=== PATIENT | female | born 1955 | race Caucasian/White ===

== ENCOUNTER 2017-02-14 06:48 | Observation (INO) | payer OTHER ==
--- NOTE | 2017-02-03 16:54 | HP ---
CC: Sharon Cornell NP; Dr. Gissell Lofton; Dr. Adrian Sin * ADMISSION HISTORY AND PHYSICAL: DATE OF ADMISSION: 02/14/17 ATTENDING SURGEON: Dr. Paola Granado. * (DICTATED BY LEOBARDO MARTÍNEZ) CHIEF COMPLAINT: Left breast cancer. HISTORY OF PRESENT ILLNESS: This is a 61-year-old female with multiple medical problems, who underwent routine screening mammography on 01/14/17. She had not noted any specific changes in either breast and does not do a breast self-exam on any regular basis. The mammogram was compared with a previous from September 2015 and a new density was noted in the upper outer quadrant of the left breast measuring approximately 6 mm. An ultrasound that same date confirmed a hypoechoic mass measuring 5 x 5 x 4 mm at the 2 to 3 o'clock position of the left breast located 7 cm from the nipple. A second solid nodule was noted at the 5 to 6 o'clock position measuring 7 x 4 x 6 mm with circumscribed margins. Patient underwent ultrasound- guided biopsy of both of the lesions on . The lesion at the 2 to 3 o'clock position was positive for invasive ductal carcinoma with DCIS features. It was ER positive, TX and HER2 negative. The other lesion was confirmed to be a fibroadenoma. The patient was seen in the office by Dr. Granado on 01/30/17, at which time exam revealed a small scar on the right breast (patient is status post right breast biopsy for benign disease many years ago). There were no specific masses in either breast. There was bilateral shotty axillary adenopathy by palpation. There was no supraclavicular or cervical lymphadenopathy. Patient's family history is positive for breast cancer in her sister who was diagnosed in her 40s and who is alive and well. Dr. Granado discussed with her the options for the surgical portion of treatment of her breast cancer. She has reviewed with her the indications, risks, benefits and alternatives. The patient understands the expected perioperative course. She has declined referral for reconstruction and she would like to proceed as scheduled with bilateral mastectomy with left sentinel lymph node biopsy. She also has a referral set up with Dr. Gissell Lofton. PAST MEDICAL HISTORY: 1. COPD/asthma. 2. Hypertension. 3. Hyperlipidemia. 4. Borderline diabetes mellitus. 5. Anxiety and panic disorder. 6. GERD. 7. Osteoarthritis. 8. Overactive bladder. 9. Active smoker. PAST SURGICAL HISTORY: Tubal ligation, and MARCIA with BSO for benign disease. CURRENT MEDICATIONS: 1. Paroxetine 40 mg 1-1/2 tablets once daily. 2. Metformin 500 mg daily. 3. Hydrochlorothiazide 25 mg daily. 4. Omeprazole 40 mg daily. 5. Oxybutynin ER 10 mg daily. 6. Gemfibrozil 600 mg b.i.d. 7. Alendronate 70 mg once weekly. 8. Metoprolol succinate extended release 100 mg once daily. 9. Montelukast 10 mg once daily. 10. Levocetirizine 5 mg once daily. 11. Fish oil 1000 mg b.i.d. 12. Calcium with vitamin D 500/400 mg b.i.d. 13. Vitamin D3 2000 IU once daily. 14. Naproxen 500 mg b.i.d. p.r.n. (does not use daily). 15. SM Acid [employer] Analyst 150 mg b.i.d. 16. QVAR 80 mcg per actuation 1 puff b.i.d. 17. Nasonex 50 mcg per actuation 2 sprays each nostril b.i.d. 18. ProAir RespiClick 90 mcg base 2 puffs q.i.d. p.r.n. 19. Alprazolam 0.25 mg b.i.d. p.r.n. ( generally when riding a bus or in crowds ). DRUG ALLERGIES: None known. FAMILY HISTORY: Positive for breast cancer as noted above. Negative for ovarian cancer. Negative for anesthesia problems, bleeding or clotting disorders. SOCIAL HISTORY: Patient currently lives alone. She is accompanied by her 2 daughters who live nearby. She is not currently working, but is under disability. She is a current smoker one-half pack per day for the past 40 plus years. She expresses a desire to quit. She denies use of alcohol or other recreational drugs. REVIEW OF SYSTEMS: General: No recent constitutional symptoms or acute illnesses. Her weight has been stable. HEENT: No recent problems reported. Cardiovascular: No chest pain, palpitations, history of coronary artery disease. She is treated for hypertension. No history of heart murmur. Respiratory: COPD/asthma. No recent exacerbations. GI: No problems reported. She is scheduled for colonoscopy for routine screening in March. No problems reported in terms of change in stools or blood per rectum. : No additions to above. 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 Breasts: Per HPI. Endocrine: Borderline diabetes. She does not check fingersticks and is not aware of her most recent A1c. Dr. Granado's exam notes some nodularity to the thyroid. No history of thyroid dysfunction. Musculoskeletal: Left knee arthritis for which she uses p.r.n. naproxen. Neuropsychic: History of anxiety disorder and occasional panic attacks when she is in crowded situations. PHYSICAL EXAMINATION GENERAL: Well-nourished, mildly obese female in no acute distress. VITAL SIGNS: Height 5 feet 7 inches, weight 200 pounds. Blood pressure 170/90 , pulse 60, respirations 16, BMI 31.3. SKIN: Warm and dry. She does have some crusting and scaling in both external ears that she states is related to swimmer's ears for which she is using a topical agent. No other suspicious rashes or lesions. HEENT: See above. Pupils equal, round, and reactive. EOMs intact. No conjunctival pallor. Oropharynx is edentulous. No intraoral lesions. NECK: No lymphadenopathy, thyromegaly or masses. No cervical or supraclavicular lymphadenopathy. LUNGS: Clear to auscultation. No rales or wheezes. HEART: Regular rate and rhythm. No murmur noted. BREASTS: (Per Dr. Granado's exam as noted above, no changes). NODES: (As per Dr. Granado's exam). ABDOMEN: Soft, nontender to palpation. No palpable masses or organomegaly. Well- healed umbilical and Pfannenstiel incisions. GENITALIA AND RECTAL: Not done. BACK: No spinous process or CVA tenderness. EXTREMITIES: No edema. NEUROLOGIC: Grossly intact. IMPRESSION: Left breast cancer. PLAN: Bilateral mastectomy with left sentinel lymph node biopsy. LEOBARDO MARTÍNEZ [id number]/[facility] #: [id number] [facility] HOSPITALIliana
[~2017-02-14 06:48] MED LIST: Buffered Lidocaine 0.9% SYRIN* 5 ML/SYR SYRINGE INTRADERM ONE; Famotidine IV* 10 MG/ML 2 ML (20 mg) IV ONE; Scopolamine 1.5 mg* PATCH TRANSDERM ONE
[2017-02-14] MEDS ORDERED: Famotidine IV* 10 MG/ML 2 ML (20 mg) ONE (07:10)
[2017-02-14] MEDS ORDERED: Heparin VIAL(*) 5000 UNITS/ML VIAL (FIVE THOUSAND) ONE (07:10)
[2017-02-14] MEDS ORDERED: Lidocaine 2.5%/Prilocain 2.5%* 5 GM TUBE ONE (07:10)
[2017-02-14] MEDS ORDERED: ceFAZolin 2 GM PREMIX (*) 50 ML IVPB ONE (07:10)
[2017-02-14] MEDS ORDERED: Scopolamine 1.5 mg* PATCH ONE (07:10)
[2017-02-14] MEDS ORDERED: Buffered Lidocaine 0.9% SYRIN* 5 ML/SYR SYRINGE ONE (07:11)
--- NOTE | 2017-02-14 09:59 | RAD ---
INDICATION: LEFT breast cancer. PROCEDURE: The risks and benefits of the procedure were explained to the patient. Written informed consent was obtained. 0.326 mCi total of filtered sulfur colloid were injected intradermal in 4 divided doses along the areolar margin flanking the 2 -- 3:00 position tumor site. Spot images?were?obtained?of?the?thorax with the ipsilateral arm over the head. Solitary ipsilateral axillary sentinal node marked on the skin utilizing a point source. IMPRESSION: Successful LEFT breast lymphoscintigraphy.
[2017-02-14] MEDS ORDERED: Bupivacaine 0.25% SDV* 30 ML ONE ×3 (12:14→15:14)
[2017-02-14] MEDS ORDERED: Methylene Blue 0.5 %* 50 MG/10 ML AMP IV ONE (12:14)
[2017-02-14] MEDS ORDERED: Midazolam* 1 MG/ML 5 ML VIAL (5 MG) ONE (12:22)
[2017-02-14] MEDS ORDERED: fentaNYL* 50 MCG/ML 2 ML VIAL (100 MCG VIAL) ONE ×3 (12:22→15:42)
[2017-02-14] MEDS ORDERED: oxyCODONE/Acetamin 5/325 MG* TAB PO PRN (12:26)
[2017-02-14] MEDS ORDERED: HYDROcodone/ACETAMIN 5-325 MG* 1 TAB PO PRN (12:26)
[2017-02-14] MEDS ORDERED: PROCHLORPERAZINE INJ 5 MG/ML 2 ML VIAL IV PRN (12:26)
[2017-02-14] MEDS ORDERED: Lidocaine 2% PF * 5 ML VIAL ONE (12:50)
[2017-02-14] MEDS ORDERED: Rocuronium* 10 MG/ML VIAL ONE (12:50)
[2017-02-14] MEDS ORDERED: Propofol* 10 MG/ML 20 ML BTL IV PUSH ONE (12:50)
[2017-02-14] MEDS ORDERED: EPHEDrine (Pressors)* 50 MG/ML VIAL ONE (13:05)
[2017-02-14] MEDS ORDERED: Ondansetron INJ* 2 MG/ML VIAL ONE (14:31)
[2017-02-14] MEDS ORDERED: Neostigmine Methylsulfate* 2 MG/2 ML SYRINGE ONE (14:53)
[2017-02-14] MEDS ORDERED: Glycopyrrolate IV* 0.2 MG/ML 1 ML VIAL ONE (14:53)
[2017-02-14] MEDS ORDERED: Docusate CAP* 100 MG PO PRN (15:36)
[2017-02-14] MEDS ORDERED: HYDROmorphone* 1 MG/ML 1 ML SYR IV PRN (15:36)
[2017-02-14] MEDS ORDERED: Ondansetron INJ* 2 MG/ML VIAL IV PRN (15:36)
[2017-02-14] MEDS ORDERED: Acetaminophen TAB* 325 MG PO PRN (15:36)
[2017-02-14] MEDS: fentaNYL* 50 MCG/ML 2 ML VIAL (100 MCG VIAL) IV PRN ×2 (15:44→16:44)
[2017-02-14] MEDS ORDERED: Albuterol inh POWDER (NF) 1 PUFF MDI INH PRN (15:45)
[2017-02-14] MEDS ORDERED: ALPRAZolam TAB* 0.25 MG PO PRN (15:48)
[2017-02-14] MEDS ORDERED: Clobetasol 0.05% OINT* 30 GM TUBE TOPICAL PRN (15:48)
--- NOTE | 2017-02-14 15:56 | PN ---
Progress Note - Progress Note Date of Service: 02/14/17 Note: Brief Operative Note: Pre-op: Left breast cancer Post-op: Same Procedure: Bilateral mastectomy with left sentinel lymph node biopsy Surgeon: Dr. Granado Canvassing Manager: Ever Gama PAMacyS Christina: BERNARDOA EBL: 100 cc Fluids: LR 2000 cc Catheter: Crespo to gravity, d/c'ed at PACU Drains: TALAT vac to self-suction Specimen: Left and right breast Findings: see dictated op note
[2017-02-14] MEDS ORDERED: metFORMIN* 500 MG TAB PO SCH (18:00)
[2017-02-14] MEDS: oxyCODONE/Acetamin 5/325 MG* TAB PO PRN (18:55)
[2017-02-14] MEDS ORDERED: Mometasone 220 MCG MDI INH SCH (21:00)
[2017-02-14] MEDS ORDERED: Cetirizine* 10 MG TAB PO SCH (21:00)
[2017-02-14] MEDS: Gemfibrozil TAB* 600 MG PO SCH (21:58)
[2017-02-15] MEDS: oxyCODONE/Acetamin 5/325 MG* TAB PO PRN ×3 (01:21→14:34)
[2017-02-15] MEDS: Heparin VIAL(*) 5000 UNITS/ML VIAL (FIVE THOUSAND) SUBCUT SCH ×2 (05:43→14:48)
[2017-02-15] MEDS ORDERED: Omeprazole CAP* 20 MG PO SCH (07:30)
[2017-02-15] MEDS ORDERED: Hydrochlorothiazide TAB* 25 MG PO SCH (09:00)
[2017-02-15] MEDS ORDERED: Oxybutynin XL TAB* 5 MG PO SCH (09:00)
[2017-02-15] MEDS ORDERED: Metoprolol Succinate XL TAB* 100 MG PO SCH (09:00)
[2017-02-15] MEDS ORDERED: Montelukast Sodium TAB* 10 MG PO SCH (09:00)
[2017-02-15] MEDS ORDERED: Cetirizine* 10 MG TAB PO SCH (09:00)
[2017-02-15] MEDS ORDERED: PARoxetine HCL TAB* 40 MG PO SCH (09:00)
--- NOTE | 2017-02-15 09:06 | PN ---
Progress Note - Progress Note Date of Service: 02/15/17 Note: Surgery Ms. Rubio says her incisions are "not too bad". She c/o right hand swelling to nurse. Vital Signs 02/14/17 02/14/17 02/14/17 10:27 15:40 15:44 Temperature 97.5 F 96.8 F Pulse Rate 73 86 Respiratory 18 13 13 Rate Blood Pressure 144/81 135/77 (mmHg) O2 Sat by Pulse 99 95 Oximetry 02/14/17 02/14/17 02/14/17 15:45 15:50 16:00 Temperature 96.4 F Pulse Rate 89 85 79 Respiratory 21 16 15 Rate Blood Pressure 135/74 136/73 132/76 (mmHg) O2 Sat by Pulse 94 94 95 Oximetry 02/14/17 02/14/17 02/14/17 16:15 16:44 17:08 Temperature 97.9 F 97.4 F Pulse Rate 78 74 Respiratory 14 16 16 Rate Blood Pressure 133/69 130/65 (mmHg) O2 Sat by Pulse 97 91 Oximetry 02/14/17 02/14/17 02/14/17 17:52 17:53 18:10 Temperature 97.4 F 97.8 F Pulse Rate 74 68 Respiratory 16 16 14 Rate Blood Pressure 130/65 124/64 (mmHg) O2 Sat by Pulse 91 98 Oximetry 02/14/17 02/14/17 02/14/17 18:55 19:11 20:06 Temperature 97.7 F 97.9 F Pulse Rate 71 72 Respiratory 16 18 18 Rate Blood Pressure 123/54 122/63 (mmHg) O2 Sat by Pulse 98 98 Oximetry 02/14/17 02/14/17 02/14/17 20:55 20:56 21:00 Temperature 97.9 F Pulse Rate 65 Respiratory 20 18 16 Rate Blood Pressure 120/55 (mmHg) O2 Sat by Pulse 100 Oximetry 02/14/17 02/15/17 02/15/17 23:38 01:21 03:21 Temperature 98.3 F Pulse Rate 63 Respiratory 16 18 18 Rate Blood Pressure 117/61 (mmHg) O2 Sat by Pulse 98 Oximetry 02/15/17 02/15/17 02/15/17 03:40 05:42 07:32 Temperature 98.5 F 98.0 F Pulse Rate 71 73 Respiratory 20 18 15 Rate Blood Pressure 118/52 127/59 (mmHg) O2 Sat by Pulse 93 98 Oximetry 02/15/17 07:42 Temperature Pulse Rate Respiratory 16 Rate Blood Pressure (mmHg) O2 Sat by Pulse Oximetry Mastectomy sites: clean and dry; no signs infection JPs with serosanguinous drainage. Intake & Output 02/14/17 02/15/17 02/15/17 22:59 06:59 14:59 Intake Total 3110 300 Output Total 280 975 Balance 2830 -675 Intake: IV Fluids 3110 LR 2100 NS 50ML, Cefazolin 2G 50 Oral 0 300 Output: TALAT #1 130 35 TALAT #2 50 40 Urine 0 900 Estimated Blood Loss 100 Other: # Bowel Movements 0 POD#1 s/p bilateral mastectomies. Doing well. Can go home and f/u in office. CLFoster
--- NOTE | 2017-02-15 09:15 | OP ---
CC: Dr. Chiara Lemus; [facility] * DATE OF OPERATION: 02/14/17 - ROOM #335 DATE OF : 55 SURGEON: Paola Granado MD FRENCH DRAWER: LEOBARDO Alexandre; LEOBARDO Hernandez Student ANESTHESIOLOGIST: Danial Montez MD ANESTHESIA: General PRE-OP DIAGNOSIS: Left breast cancer. POST-OP DIAGNOSIS: Left breast cancer. OPERATIVE PROCEDURE: Bilateral mastectomy and left sentinel node biopsy. DESCRIPTION OF PROCEDURE: Ms. Rubio is a 61-year-old woman with a recent diagnosis of breast cancer, who opted for bilateral mastectomy. She was prepared for surgery and on the morning of surgery underwent sentinel lymph node localization without difficulties. She was then brought to the operating room. She was placed on the OR tablet in the supine position and given general anesthesia. The chest wall and left axilla were prepped and draped in the usual sterile fashion. First step was to attend to the left breast where the cancer was and here a curvilinear incision encompassing the nipple areolar complex was made. Subcutaneous tissue was divided with electrocautery; medially to the sternum, superiorly to the clavicle, and laterally to the latissimus dorsi muscle. Then inferior curvilinear incision was made to complete the ellipse around the nipple areolar complex and subcutaneous tissue was divided again with electrocautery medially to the sternum, inferiorly to the rectus muscle, and laterally to the latissimus dorsi muscle. The breast was then elevated off the chest wall using electrocautery. Once it was removed from the chest wall up to the level of the axilla, a search was made for the sentinel lymph node. Here it was identified in the tail of the breast and so the decision was made to remove it with the breast and marked with identifying stitch. This was done again using electrocautery and the axillary bed was checked and there were essentially no counts left in the axillary bed. This breast was handed off as a specimen. In the process of dissecting the inferior flap, it was noted that there was a hard nodule still remaining in the subdermal tissue, so some additional skin was taken including this hard nodule and this was marked in the usual fashion and handed off as a specimen labeled tissue inferior and anterior to mastectomy. Hemostasis was assured with electrocautery and once this appeared adequate, closure was accomplished. This was done with 2-0 Polysorb in subcutaneous layer and the skin was closed with 4- 0 Polysorb in subcuticular fashion. Prior to closing, a TALAT drain was placed into the wound positioned under the anterior flaps of the mastectomy site and emerging from the chest wall through stab wound at the anterior inferior axillary line. Attention was then turned to the right side here. A curvilinear incision was made in the superior breast and subcutaneous tissue was divided with electrocautery medially to the sternum, superiorly to the clavicle, and laterally to the latissimus dorsi muscle. A second elliptical incision was made to complete the ellipse around the nipple areolar complex and subcutaneous tissue was divided medially to the sternum, inferiorly to the rectus muscle, and laterally to the latissimus dorsi muscle. The breast was then elevated off the chest wall and handed off as a specimen with the usual alvarenga. Hemostasis was assured with electrocautery and the wound was irrigated with saline and a TALAT drain was placed through a stab wound in the anterior inferior axillary line and placed under the skin flaps of the mastectomy site. Closure was accomplished with 3-0 and 2-0 Polysorb in the subcutaneous layer and the skin was closed with 4-0 Polysorb in subcuticular fashion. Steri-Strips and dry fluffy dressings were applied to both incision sites and held in place with an Lester wrap. All sponge and instrument counts were correct. The patient tolerated the procedure well and was transferred to recovery in stable condition. [id number]/[facility] #: [id number] UTE
[2017-02-15] MEDS: Gemfibrozil TAB* 600 MG PO SCH (09:34)
[2017-02-15 12:23] VITALS: BP 120/52
[2017-02-17] MEDS ORDERED: Scopolomine PATCH Remove* 1 NOTE MISC PATCH OFF ONE (06:00)
== END 2017-02-15 15:20 | disposition home or self-care (01) ==
LOC: INTOOBSV 06:48 → AA 06:48 → SSU 15:36
PROVIDERS: ADMIT Surgery; ATTEND Surgery
DX: C50.912 Malignant neoplasm of unspecified site of left female breast (principal); D24.1 Benign neoplasm of right breast; J44.9 Chronic obstructive pulmonary disease, unspecified; E11.9 Type 2 diabetes mellitus without complications; Z79.84 Long term (current) use of oral hypoglycemic drugs; F17.210 Nicotine dependence, cigarettes, uncomplicated; I10 Essential (primary) hypertension; E78.5 Hyperlipidemia, unspecified; K21.9 Gastro-esophageal reflux disease without esophagitis; F41.0 Panic disorder [episodic paroxysmal anxiety]; Z79.899 Other long term (current) drug therapy
CPT/HCPCS: 78195; 87641; 88307; 88309; 88341; 88342; 88360; 96374; A9270-GY; A9541; G0378; J0690; J1644; J2250; J2405; J2704; J3010

== ENCOUNTER 2017-04-01 14:36 | Emergency (ER) | payer OTHER ==
[2017-04-01 14:43] VITALS: BP 141/64
--- NOTE | 2017-04-01 15:31 | RAD ---
Indication: Left hand injury. 4 views of left hand demonstrates no fracture. No other bone or joint abnormality is identified. IMPRESSION: No fracture of the left hand is noted.
--- NOTE | 2017-04-01 15:59 | ED ---
Upper Extremity Pain - HPI Summary HPI Summary: hit palm of her left hand on a spring coil that snapped while she was feeding her sons bunnies one week ago. has continued pain in the palm of her hand n/m/c intact in wrist and all fingers--one night her palm hurt bad enough to take pain med but has been otherwise ok--Slight swelling in her hand (usual per patient) - History of Current Complaint Chief Complaint: EDExtremityUpper Stated Complaint: LEFT HAND INJURY Time Seen by Provider: 04/01/17 15:30 Hx Obtained From: Patient Mechanism Of Injury: Blunt Trauma Onset/Duration: Started Days Ago - 7, Traumatic Timing: Constant Severity Initially: Moderate Severity Currently: Moderate Pain Location: Hand - palm of left hand Character: Aching Aggravating Factor(s): Movement Alleviating Factor(s): Rest, Ice, Other - meds that were RX for bone pain ( unsure what they are) Associated Signs & Symptoms: Positive: Swelling - minumal/usual, Other - no cord , no erythema no tenderness in arm or axilla. Negative: Weakness, Numbness/ Tingling Related History: Dominant Hand Right - Allergies/Home Medications Allergies/Adverse Reactions: Allergies Allergy/AdvReac Type Severity Reaction Status Date / Time Environmental Allergy Congestion Uncoded 02/14/17 07:22 Seasonal Allergy Congestion Uncoded 02/14/17 07:22 PMH/Surg Hx/FS Hx/Imm Hx Previously Healthy: No Endocrine/Hematology History: Reports: Hx Diabetes Denies: Hx Thyroid Disease Cardiovascular History: Reports: Hx Hypertension, Other Cardiovascular Problems/ Disorders - IRREGULAR HR Denies: Hx Pacemaker/ICD Respiratory History: Reports: Other Respiratory Problems/Disorders - getting regular allergy injections Denies: Hx Asthma, Hx Chronic Obstructive Pulmonary Disease (COPD) GI History: Reports: Hx Gastroesophageal Reflux Disease - controlled with medication Denies: Hx Ulcer History: Denies: Hx Renal Disease Musculoskeletal History: Reports: Hx Arthritis - rhuematoid and osteo, Hx Osteoporosis Sensory History: Reports: Hx Contacts or Glasses - wears glasses Denies: Hx Hearing Aid Opthamlomology History: Reports: Hx Contacts or Glasses - wears glasses Neurological History: Reports: Hx Migraine - at most twice a month, Other Neuro Impairments/Disorders - NUMBNESS AND TINGLING LEFT UPPER EXTREMITY AND HAND Psychiatric History: Reports: Hx Anxiety - controlled with medication, Hx Depression - controlled with medication, Hx Panic Disorder - ANXIETY - Cancer History Cancer Type, Location and Year: breast CA Hx Hematologic Symptoms: No Hx Chemotherapy: No Hx Radiation Therapy: No - Surgical History Surgery Procedure, Year, and Place: hysterectomy. tubal. mastectomy 01/2017 Hx Anesthesia Reactions: No Infectious Disease History: No Infectious Disease History: Denies: Hx Clostridium Difficile, Hx Hepatitis, Hx Human Immunodeficiency Virus (HIV), Hx of Known/Suspected MRSA, Hx Shingles, Hx Tuberculosis, Hx Known/ Suspected VRE, Hx Known/Suspected VRSA, History Other Infectious Disease, Traveled Outside the [place] in Last 30 Days - Family History Known Family History: Positive: None - Social History Occupation: Disabled Lives: With Family Alcohol Use: None Substance Use Type: Reports: None Substance Use Comment - Amount & Last Used: 2 cups of coffee/1 liter diet coke, per day Hx Tobacco Use: Yes Smoking Status (MU): Light Every Day Tobacco Smoker Type: Cigarettes Amount Used/How Often: 1 pack per week Have You Chewed or Dipped Tobacco in the LAST YEAR: Yes Length of Time of Smoking/Using Tobacco: 40 years Have You Smoked in the Last Year: Yes Household Exposure: No Cessation Counseling: Counseled 3+Min - 10 Min Review of Systems Constitutional: Negative Eyes: Negative ENT: Negative Cardiovascular: Negative Respiratory: Negative Gastrointestinal: Negative Genitourinary: Negative Positive: Arthralgia - palm of left hand Skin: Negative Neurological: Negative Psychological: Normal All Other Systems Reviewed And Are Negative: Yes Physical Exam Triage Information Reviewed: Yes Vital Signs On Initial Exam: Initial Vitals Temp Pulse Resp BP Pulse Ox 96.6 F 99 20 141/64 99 04/01/17 14:41 04/01/17 14:41 04/01/17 14:41 04/01/17 14:41 04/01/17 14:41 Vital Signs Reviewed: Yes Appearance: Positive: Well-Appearing, No Pain Distress, Well-Nourished Skin: Positive: Warm, Skin Color Reflects Adequate Perfusion, Mass @. Negative : Pale, Lymphangitis Head/Face: Positive: Normal Head/Face Inspection Eyes: Positive: Normal, EOMI, Conjunctiva Clear ENT: Positive: Hearing grossly normal. Negative: Nasal congestion, Nasal drainage, TMs normal, Muffled/hoarse voice, Dental tenderness Neck: Positive: Supple, Nontender Respiratory/Lung Sounds: Positive: Breath Sounds Present. Negative: Unable to speak in full sentences Cardiovascular: Positive: Normal, RRR, Pulses are Symmetrical in both Upper and Lower Extremities Musculoskeletal: Positive: Normal, Strength/ROM Intact Neurological: Positive: Normal, Sensory/Motor Intact, Alert, Oriented to Person Place, Time Psychiatric: Positive: Normal AVPU Assessment: Alert - Harvey Coma Scale Best Eye Response: 4 - Spontaneous Best Motor Response: 6 - Obeys Commands Best Verbal Response: 5 - Oriented Diagnostics - Vital Signs Vital Signs Temp Pulse Resp BP Pulse Ox 04/01/17 14:41 96.6 F 99 20 141/64 99 - Laboratory Diagnostic Studies Comment: x-ray negative Lab Statement: Any lab studies that have been ordered have been reviewed, and results considered in the medical decision making process. Re-Evaluation - Re-Evaluation First Eval Change: Improved - robi wrap applied n/m/c intact before and after Course/Dx - Course Assessment/Plan: RICE, ROBI, nicotine cesation information, high blood pressure in poor control - Diagnoses Differential Diagnosis/HQI/PQRI: Positive: Contusion Provider Diagnoses: Hand contusion Discharge - Discharge Plan Condition: Stable Disposition: HOME Patient Education Materials: Contusion in Adults (ED), How to Stop Smoking (ED) , Hypertension (ED), RICE Therapy (ED) Referrals: Chiara Lemus MD [Primary Care Provider] - 3 Days
== END 2017-04-01 16:21 | disposition home or self-care (01) ==
LOC: ED 14:36
DX: S60.222A Contusion of left hand, initial encounter (principal); W22.8XXA Striking against or struck by other objects, initial encounter; Y93.9 Activity, unspecified; Y92.9 Unspecified place or not applicable; F17.210 Nicotine dependence, cigarettes, uncomplicated; Z86.79 Personal history of other diseases of the circulatory system
CPT/HCPCS: 99282

== ENCOUNTER 2017-09-19 22:10 | Emergency (ER) | payer OTHER ==
[2017-09-19] MEDS ORDERED: Amoxicillin/Clavulanate TAB* 875 MG PO ONE (22:57)
[2017-09-19 23:44] VITALS: BP 134/79
--- NOTE | 2017-09-24 22:47 | ED ---
Mickey Penn Sixian, scribed for Manuelito Muniz MD on 09/19/17 at 2256 . Throat Pain/Nasal Congestion - HPI Summary HPI Summary: This patient is a 62 year old F presenting to ED with a chief complaint of bilateral ear pain, worsening since 0800 yesterday. The patient rates the pain 6 /10 in severity. Symptoms aggravated and alleviated by nothing. Patient reports right facial swelling. Patient denies fever. - History of Current Complaint Chief Complaint: EDGeneral Time Seen by Provider: 09/19/17 22:33 Hx Obtained From: Patient Onset/Duration: Still Present, Worse Since - yesterday Severity: Moderate - 6/10 - Allergies/Home Medications Allergies/Adverse Reactions: Allergies Allergy/AdvReac Type Severity Reaction Status Date / Time Environmental Allergy Congestion Uncoded 09/19/17 22:24 Seasonal Allergy Congestion Uncoded 09/19/17 22:24 PMH/Surg Hx/FS Hx/Imm Hx Endocrine/Hematology History: Reports: Hx Diabetes Denies: Hx Thyroid Disease Cardiovascular History: Reports: Hx Hypertension, Other Cardiovascular Problems/ Disorders - IRREGULAR HR Denies: Hx Pacemaker/ICD Respiratory History: Reports: Other Respiratory Problems/Disorders - getting regular allergy injections Denies: Hx Asthma, Hx Chronic Obstructive Pulmonary Disease (COPD) GI History: Reports: Hx Gastroesophageal Reflux Disease - controlled with medication Denies: Hx Ulcer History: Denies: Hx Renal Disease Musculoskeletal History: Reports: Hx Arthritis - rhuematoid and osteo, Hx Osteoporosis Sensory History: Reports: Hx Contacts or Glasses - wears glasses Denies: Hx Hearing Aid Opthamlomology History: Reports: Hx Contacts or Glasses - wears glasses Neurological History: Reports: Hx Migraine - at most twice a month, Other Neuro Impairments/Disorders - NUMBNESS AND TINGLING LEFT UPPER EXTREMITY AND HAND Psychiatric History: Reports: Hx Anxiety - controlled with medication, Hx Depression - controlled with medication, Hx Panic Disorder - ANXIETY - Cancer History Cancer Type, Location and Year: breast CA Hx Hematologic Symptoms: No Hx Chemotherapy: No Hx Radiation Therapy: No - Surgical History Surgery Procedure, Year, and Place: hysterectomy. tubal. mastectomy 01/2017 Hx Anesthesia Reactions: No Infectious Disease History: No Infectious Disease History: Denies: Hx Clostridium Difficile, Hx Hepatitis, Hx Human Immunodeficiency Virus (HIV), Hx of Known/Suspected MRSA, Hx Shingles, Hx Tuberculosis, Hx Known/ Suspected VRE, Hx Known/Suspected VRSA, History Other Infectious Disease, Traveled Outside the [place] in Last 30 Days - Family History Known Family History: Positive: None - Social History Alcohol Use: None Substance Use Type: Reports: None Substance Use Comment - Amount & Last Used: 2 cups of coffee/1 liter diet coke, per day Hx Tobacco Use: Yes Smoking Status (MU): Light Every Day Tobacco Smoker Type: Cigarettes Amount Used/How Often: 1 pack per week Length of Time of Smoking/Using Tobacco: 40 years Have You Smoked in the Last Year: Yes Review of Systems Negative: Fever Positive: Ear Ache - bilateral Skin: Other - right facial swelling All Other Systems Reviewed And Are Negative: Yes Physical Exam - Summary Physical Exam Summary: Appearance: Well-appearing, no distress, Well-nourished Skin: Warm, color reflects adequate perfusion Head: Normal Head inspection, Erythema to the right maxilla area Eyes: Conjunctiva clear ENT: chronic, erythema and swelling to bilateral externall auditory canals Neck: Supple, no nodes, Respiratory: Lungs clear, Normal breath sounds, no respiratory distress Cardio: RRR, No murmur, pulses normal, brisk capillary refill Triage Information Reviewed: Yes Vital Signs On Initial Exam: Initial Vitals Temp Pulse Resp BP Pulse Ox 98.2 F 102 16 137/83 97 09/19/17 22:19 09/19/17 22:19 09/19/17 22:19 09/19/17 22:19 09/19/17 22:19 Vital Signs Reviewed: Yes Diagnostics - Vital Signs Vital Signs Temp Pulse Resp BP Pulse Ox 09/19/17 22:19 98.2 F 102 16 137/83 97 - Laboratory Lab Statement: Any lab studies that have been ordered have been reviewed, and results considered in the medical decision making process. EENT Course/Dx - Differential Diagnoses Differential Diagnoses: Cellulitis, Dental Abscess, Mastoiditis, Otitis Externa , Otitis Media, Pharyngitis - Diagnoses Provider Diagnoses: Otitis externa, chronic Discharge - Sign-Out/Discharge Documenting (check all that apply): Discharge - Discharge Plan Condition: Improved Disposition: HOME Prescriptions: Amoxicillin/Clavulanate TAB* [Augmentin TAB 875*] 875 mg PO BID #14 tab Patient Education Materials: Otitis Externa (ED) Referrals: Sharon Cornell NP [Primary Care Provider] - 3 Days Additional Instructions: RETURN TO THE EMERGENCY DEPARTMENT FOR CHANGING OR WORSENING SYMPTOMS. - Billing Disposition and Condition Condition: IMPROVED Disposition: HOME The documentation as recorded by the Mickey knowles Sixian accurately reflects the service I personally performed and the decisions made by me, Manuelito Muniz MD.
== END 2017-09-19 23:55 | disposition home or self-care (01) ==
LOC: ED 22:10
DX: H60.63 Unspecified chronic otitis externa, bilateral (principal); H92.03 Otalgia, bilateral; F17.210 Nicotine dependence, cigarettes, uncomplicated
CPT/HCPCS: 99282; A9270-GY

== ENCOUNTER 2017-09-25 21:07 | Inpatient (IN) | payer OTHER ==
[2017-09-25] MEDS ORDERED: NS 0.9% 1000 ML* 1,000 ML IV ONE (21:26)
[2017-09-25] MEDS ORDERED: Ketorolac INJ* 30 MG/ML 1 ML VIAL IV PUSH ONE (21:26)
[2017-09-25] MEDS ORDERED: Acetaminophen TAB* 325 MG PO ONE (22:07)
[2017-09-25] MEDS ORDERED: Albuterol/Ipratropium NEB.SOL* Albuterol 2.5 MG/Ipratropium 0.5 MG 3 ML INH ONE (22:07)
[2017-09-25] MEDS ORDERED: Levofloxacin 750 MG IVPREMIX(* 750 MG/150 ML BAG IVPB ONE (22:08)
[2017-09-25] MEDS ORDERED: methylPREDNISolone 125 MG* 2 ML VIAL IV ONE (22:10)
[2017-09-25 22:11] LABS: EGFR Non-African American 46.4 (>60)
[2017-09-25 22:15] LABS: Hematocrit 27 % (35-47); Hemoglobin 8.5 g/dl (12.0-16.0); Mean Corpuscular HGB Conc 31 g/dl (31-36); Mean Corpuscular Hemoglobin 23 pg (27-31); Mean Corpuscular Volume 73 fL (80-97); Red Blood Count 3.73 10^6/ul (4.0-5.4); Red Cell Distribution Width 18 % (10.5-15); White Blood Count 6.3 10^3/ul (3.5-10.8)
[2017-09-25] MEDS: Albuterol 2.5 MG/3 ML NEB.SOL* (0.083%) INH SCH (22:30)
[2017-09-25 22:37] LABS: ABS Basophils 0 10^3/ul (0-0.2); ABS Eosinophils 0.1 10^3/ul (0-0.6); ABS Lymphocytes 0.4 10^3/ul (1.0-4.8); ABS Monocytes 0.4 10^3/ul (0-0.8); ABS Neutrophils 5.4 10^3/ul (1.5-7.7); ABS Nucleated RBC 0 10^3/ul; Eosinophil % 1.4 % (0-6); Mean Platelet Volume 8.9 um3 (7.4-10.4); Nucleated Red Blood Cells % 0.2; Platelet Count 152 10^3/ul (150-450)
[2017-09-25] MEDS ORDERED: Oseltamivir CAP* 75 MG CAP PO ONE (22:58)
[2017-09-25 23:29] LABS: INR 1.1 (0.77-1.02)
[2017-09-25] MEDS ORDERED: Magnesium Sulfate 2 GM IV* 2 GM/50 ML BAG IVPB ONE (23:29)
[2017-09-25] MEDS ORDERED: Ondansetron INJ* 2 MG/ML VIAL IV PRN (23:41)
[2017-09-25] MEDS ORDERED: Albuterol 2.5 MG/3 ML NEB.SOL* (0.083%) INH PRN (23:41)
--- NOTE | 2017-09-26 00:04 | ED ---
Armando Penn Rebecca, scribed for Beverly Torre MD on 09/25/17 at 2147 . Complex/Multi-Sys Presentation - HPI Summary HPI Summary: Pt is a 62 y/o F who presents to ED c/o cough. Cough began earlier today. Additionally c/o wheezing and acute on chronic lower back pain secondary to try to hold back her cough. Pain is currently moderate, ranked 5/10. Denies fever. SHx current smoker. - History Of Current Complaint Chief Complaint: EDFluSymptoms Time Seen by Provider: 09/25/17 21:44 Hx Obtained From: Patient Onset/Duration: Still Present Severity Currently: Moderate - 5/10 Location: Pain At: - Lower back Aggravating Factor(s): Holding back cough Alleviating Factor(s): Nothing Associated Signs And Symptoms: Positive: Cough, Wheezing. Negative: Fever - Allergies/Home Medications Allergies/Adverse Reactions: Allergies Allergy/AdvReac Type Severity Reaction Status Date / Time Environmental Allergy Congestion Uncoded 09/25/17 21:12 Seasonal Allergy Congestion Uncoded 09/25/17 21:12 PMH/Surg Hx/FS Hx/Imm Hx Endocrine/Hematology History: Reports: Hx Diabetes Denies: Hx Thyroid Disease Cardiovascular History: Reports: Hx Hypertension, Other Cardiovascular Problems/ Disorders - IRREGULAR HR Denies: Hx Pacemaker/ICD Respiratory History: Reports: Other Respiratory Problems/Disorders - getting regular allergy injections Denies: Hx Asthma, Hx Chronic Obstructive Pulmonary Disease (COPD) GI History: Reports: Hx Gastroesophageal Reflux Disease - controlled with medication Denies: Hx Ulcer History: Denies: Hx Renal Disease Musculoskeletal History: Reports: Hx Arthritis - rhuematoid and osteo, Hx Osteoporosis Sensory History: Reports: Hx Contacts or Glasses - wears glasses Denies: Hx Hearing Aid Opthamlomology History: Reports: Hx Contacts or Glasses - wears glasses Neurological History: Reports: Hx Migraine - at most twice a month, Other Neuro Impairments/Disorders - NUMBNESS AND TINGLING LEFT UPPER EXTREMITY AND HAND Psychiatric History: Reports: Hx Anxiety - controlled with medication, Hx Depression - controlled with medication, Hx Panic Disorder - ANXIETY - Cancer History Cancer Type, Location and Year: breast CA Hx Hematologic Symptoms: No Hx Chemotherapy: No Hx Radiation Therapy: No - Surgical History Surgery Procedure, Year, and Place: hysterectomy. tubal. mastectomy 01/2017 Hx Anesthesia Reactions: No - Immunization History Date of Influenza Vaccine: has not received Infectious Disease History: Yes Infectious Disease History: Denies: Hx Clostridium Difficile, Hx Hepatitis, Hx Human Immunodeficiency Virus (HIV), Hx of Known/Suspected MRSA, Hx Shingles, Hx Tuberculosis, Hx Known/ Suspected VRE, Hx Known/Suspected VRSA, History Other Infectious Disease, Traveled Outside the [place] in Last 30 Days - Family History Known Family History: Positive: Other - Breast CA - Social History Alcohol Use: None Substance Use Type: Reports: None Substance Use Comment - Amount & Last Used: 2 cups of coffee/1 liter diet coke, per day Hx Tobacco Use: Yes Smoking Status (MU): Light Every Day Tobacco Smoker Type: Cigarettes Amount Used/How Often: 1 pack per week Length of Time of Smoking/Using Tobacco: 40 years Have You Smoked in the Last Year: Yes Review of Systems Negative: Fever Positive: Cough, Other - Wheezing Positive: Other - Acute on chronic back pain All Other Systems Reviewed And Are Negative: Yes Physical Exam - Summary Physical Exam Summary: VITAL SIGNS: Reviewed. GENERAL: ~Patient is a well-developed and nourished female who is lying comfortable in the stretcher. Patient is not in any acute respiratory distress. HEAD AND FACE: No signs of trauma. No ecchymosis, hematomas or skull depressions. No sinus tenderness. EYES: PERRLA, EOMI x 2, No injected conjunctiva, no nystagmus. EARS: Hearing grossly intact. Ear canals and tympanic membranes are within normal limits. MOUTH: Oropharynx within normal limits. NECK: Supple, trachea is midline, no adenopathy, no JVD, no carotid bruit, no c- spine tenderness, neck with full ROM. CHEST: Symmetric, no tenderness at palpation LUNGS: No crackles. Decreased breath sounds and expiratory wheezes. CVS: Regular rate and rhythm, S1 and S2 present, no murmurs or gallops appreciated. EXTREMITIES: FROM in all major joints, no edema, no cyanosis or clubbing. NEURO: Alert and oriented x 3. No acute neurological deficits. Speech is normal and follows commands. SKIN: Dry and warm Triage Information Reviewed: Yes Vital Signs On Initial Exam: Initial Vitals Temp Pulse Resp BP Pulse Ox 99.2 F 127 20 163/62 96 09/25/17 21:09 09/25/17 21:09 09/25/17 21:09 09/25/17 21:09 09/25/17 21:09 Vital Signs Reviewed: Yes Diagnostics - Vital Signs Vital Signs Temp Pulse Resp BP Pulse Ox 09/25/17 21:09 99.2 F 127 20 163/62 96 - Laboratory Result Diagrams: 09/25/17 22:00 09/25/17 21:45 Lab Statement: Any lab studies that have been ordered have been reviewed, and results considered in the medical decision making process. - Radiology CXR Xray Interpretation: No Acute Changes - No acute process. Pending official report. Radiology Interpretation Completed By: ED Physician - EKG 8407 Cardiac Rate: Tachycardia - 119 bpm EKG Rhythm: Sinus Tachycardia EKG Interpretation: Nonspecific ST changes Re-Evaluation - Re-Evaluation First Eval Re-Evaluation Time: 23:36 Change: Unchanged Comment: Discussed lab and XR results. Complex Multi-Symp Course/Dx Assessment/Plan: Pt is a 62 y/o F who presents to ED c/o cough. Cough began earlier today. Additionally c/o wheezing and acute on chronic lower back pain secondary to try to hold back her cough. Pain is currently moderate, ranked 5/ 10. Denies fever. SHx current smoker. CXR reveals no acute findings. Influenza A positive, influenza B negative. ABG pO2 of 43. EKG is sinus tachy with nonspecific ST changes. In the ED course, pt received Tylenol, Tamiflu, Solu- Medrol, Toradol, Duoneb, Levaquin, magnesium sulfate, albuterol and fluids. Discussed care of pt with Dr. Flores who accepts pt for admission. Pt will be admitted with Dx of acute hypoxia, acute bronchitis and influenza A. She understands and agrees. Allergies noted. - Diagnoses Provider Diagnoses: Influenza A, Acute bronchitis, Hypoxia - Physician Notifications Discussed Care Of Patient With: Pierce Flores Time Discussed With Above Provider: 23:41 Instructed by Provider To: Other - Accepts pt for admission. Discharge - Sign-Out/Discharge Documenting (check all that apply): Discharge - Admitted - Discharge Plan Condition: Fair Disposition: ADMITTED TO [facility] Referrals: Sharon Cornell, [employer] ADMINISTRATOR [Primary Care Provider] - The documentation as recorded by the Armando knowles Rebecca accurately reflects the service I personally performed and the decisions made by me, Beverly Torre MD.
[2017-09-26] MEDS ORDERED: Albuterol/Ipratropium NEB.SOL* Albuterol 2.5 MG/Ipratropium 0.5 MG 3 ML INH PRN (00:16)
[2017-09-26] MEDS: NS 0.9% 1000 ML* 1,000 ML IV SCH ×2 (01:29→22:00)
[2017-09-26 05:23] LABS: Urine Appearance Clear; Urine Blood Negative (Negative); Urine Color Yellow; Urine Ketones Negative (Negative); Urine Protein Negative (Negative); Urine Urobilinogen Negative (Negative)
[2017-09-26] MEDS: Heparin VIAL(*) 5000 UNITS/ML VIAL (FIVE THOUSAND) SUBCUT SCH ×3 (06:14→22:37)
[2017-09-26 06:50] LABS: ABS Basophils 0 10^3/ul (0-0.2); ABS Eosinophils 0 10^3/ul (0-0.6); ABS Lymphocytes 0.6 10^3/ul (1.0-4.8); ABS Monocytes 0.2 10^3/ul (0-0.8); ABS Neutrophils 5.2 10^3/ul (1.5-7.7); ABS Nucleated RBC 0 10^3/ul; Eosinophil % 0.2 % (0-6); Hematocrit 24 % (35-47); Hemoglobin 7.6 g/dl (12.0-16.0); Lymphocyte % 9.2 % (25-47); Mean Corpuscular HGB Conc 31 g/dl (31-36); Mean Corpuscular Hemoglobin 23 pg (27-31); Mean Corpuscular Volume 73 fL (80-97); Nucleated Red Blood Cells % 0; Platelet Count 243 10^3/ul (150-450); Red Blood Count 3.33 10^6/ul (4.0-5.4); Red Cell Distribution Width 19 % (10.5-15)
[2017-09-26 06:57] LABS: EGFR Non-African American 57.5 (>60)
[2017-09-26] MEDS ORDERED: Ibuprofen TAB* 200 MG PO PRN (07:00)
[2017-09-26] MEDS ORDERED: Albuterol HFA INHALER* 8 gm MDI INH PRN (07:00)
[2017-09-26] MEDS ORDERED: oxyCODONE/Acetamin 5/325 MG* TAB PO PRN (07:00)
--- NOTE | 2017-09-26 07:35 | RAD ---
INDICATION: Cough and fever. COMPARISON: Comparison is made with a prior chest x-ray study from July 28, 2015. TECHNIQUE: Dual-energy PA and lateral views of the chest were obtained. FINDINGS: The heart is within normal limits in size. Mediastinal and hilar contours appear within normal limits. The lungs are underinflated. There is mild prominence of the interstitial markings which may be due to underinflation. No focal infiltrate or pleural effusion is seen. IMPRESSION: NO EVIDENCE FOR ACUTE FINDING.
--- NOTE | 2017-09-26 07:57 | PN ---
Subjective Date of Service: 09/26/17 Interval History: Pt is feeling ok. She states her nose is dry from the oxygen. She has been coughing but not bringing up any sputum. She denies any pain. She has not noted any blood in her stool. Objective Active Medications: Acetaminophen (Tylenol Tab*) 650 mg PO Q4H PRN PRN Reason: FEVER/PAIN Albuterol (Ventolin 2.5 Mg/3 Ml Neb.Sandra*) 2.5 mg INH [id number] AWAKE PRN PRN Reason: sob/wheezing Albuterol (Proair Respiclick) 2 puff INH Q4HR PRN PRN Reason: SOB/WHEEZING Albuterol/Ipratropium (Duoneb (Albuterol 2.5 Mg/Ipratropium 0.5 Mg)) 1 neb INH Q4H PRN PRN Reason: SOB/WHEEZING Beclomethasone Dipropionate (Qvar 80 Mcg Mdi(Nf)) puff INH BID [facility] Fluticasone Propionate (Flonase Nasal Early 50mcg*) 2 spray NASAL DAILY [facility] Guaifenesin (Mucinex*) 1,200 mg PO BID [facility] Heparin Sodium (Porcine) (Heparin Vial(*)) 5,000 units SUBCUT Q8HR [facility] Last Admin: 09/26/17 06:14 Dose: 5,000 units Hydrochlorothiazide (Hydrodiuril Tab*) 25 mg PO QAM [facility] Sodium Chloride (Ns 0.9% 1000 Ml*) 1,000 mls @ 125 mls/hr IV PER RATE [facility] Last Admin: 09/26/17 01:29 Dose: 125 mls/hr Levofloxacin/Dextrose (Levaquin 500 Mg Ivpremix(*)) 500 mg in 100 mls @ 100 mls /hr IVPB Q24H [facility] Ibuprofen (Advil Tab*) 200 mg PO Q6H PRN PRN Reason: PAIN Influenza Virus Vaccine (Fluarix *Quad* 2017-*) 0.5 ml IM .ONCE ONE Stop: 09/26/17 09:01 Levocetirizine (Xyzal Tab (Nf)) 5 mg PO QAM [facility] Metformin HCl (Glucophage*) 500 mg PO 1700 [facility] Metoprolol Succinate (Toprol Xl Tab*) 100 mg PO QAM [facility] Montelukast Sodium (Singulair Tab*) 10 mg PO 2100 [facility] Non-Formulary Medication (Calcium Carbonate-Cholecalcife [Calcium 500 +D 500- 400 Mg-Unit]) 1 tab PO BID [facility] Ondansetron HCl (Zofran Inj*) 4 mg IV Q4H PRN PRN Reason: NAUSEA/VOMITING Oseltamivir Phosphate (Tamiflu Cap*) 30 mg PO BID [facility] Stop: 09/30/17 21:01 Oxycodone/Acetaminophen (Percocet 5/325 Tab*) 1 tab PO Q4H PRN PRN Reason: PAIN Paroxetine HCl (Paxil Tab*) 60 mg PO QAM [facility] Pneumococcal Polyvalent Vaccine (Pneumococcal Vac 23-Polyvalent*) 0.5 ml IM .ONCE ONE Stop: 09/26/17 09:01 Senna (Senokot Tab*) 1 tab PO BID [facility] Vital Signs - 8 hr 09/26/17 09/26/17 09/26/17 00:00 00:01 00:05 Temperature Pulse Rate 116 117 116 Respiratory Rate Blood Pressure 109/36 (mmHg) O2 Sat by Pulse 94 95 96 Oximetry 09/26/17 09/26/17 09/26/17 00:30 00:34 00:55 Temperature 97.4 F 97.4 F Pulse Rate 116 112 112 Respiratory 20 20 Rate Blood Pressure 122/53 122/53 122/53 (mmHg) O2 Sat by Pulse 94 95 95 Oximetry 09/26/17 09/26/17 09/26/17 01:02 01:08 04:55 Temperature 98.1 F 98.1 F 98 F Pulse Rate 114 114 105 Respiratory 22 22 20 Rate Blood Pressure 141/54 141/54 158/58 (mmHg) O2 Sat by Pulse 97 97 97 Oximetry Oxygen Devices in Use Now: Nasal Cannula - 2L-97% Appearance: Middle aged female sitting up in bed, NAD Eyes: No Scleral Icterus Ears/Nose/Mouth/Throat: Mucous Membranes Moist Respiratory: Symmetrical Chest Expansion and Respiratory Effort, - - bibasilar crackles Cardiovascular: NL Sounds; No Murmurs; No JVD, No Edema, - - tachycardic but regular Abdominal: NL Sounds; No Tenderness; No Distention Extremities: No Clubbing, Cyanosis Skin: No Nodules or Sclerosis, - - numerous scars and few open lesions on lower legs-pt states bug bites that she picks at Neurological: Alert and Oriented x 3 Result Diagrams: 09/26/17 06:23 09/26/17 06:23 Assess/Plan/Problems-Billing Ms Rubio is a 62 yo F who has a h/o COPD, HTN, HLD, DM, anxiety and a h/o breast cancer who presented to the ER with c/o cough and body aches and was found to be positive for influenza A. - Patient Problems (1) Influenza A Current Visit: Yes Status: Acute Code(s): J10.1 - FLU DUE TO OTH IDENT INFLUENZA VIRUS W OTH RESP MANIFEST SNOMED Code(s): 399288378 Comment: Continue tamiflu but discuss with pharmacy about increasing back to full dose as her renal function has improved some. I suspect the patient had a slight bump in her creatinine (<2x baseline) from mild volume depletion from influenza. Continue levaquin for now. Await sputum sample. (2) Anemia Current Visit: Yes Status: Acute Code(s): D64.9 - ANEMIA, UNSPECIFIED SNOMED Code(s): 143628752 Comment: The patient has a new marked anemia. Last (2016) she was mildly anemic from her baseline however now it is quite a bit worse. Will check iron and B12 studies. Check stool guaiac. May need GI eval. (3) COPD (chronic obstructive pulmonary disease) Current Visit: Yes Status: Acute Code(s): J44.9 - CHRONIC OBSTRUCTIVE PULMONARY DISEASE, UNSPECIFIED SNOMED Code(s): 37923090 Comment: No signs of exacerbation. Continue albuterol, Qvar, singulair. Monitor for wheezing. Try to wean off O2 today. (4) HTN (hypertension) Current Visit: Yes Status: Acute Code(s): I10 - ESSENTIAL (PRIMARY) HYPERTENSION SNOMED Code(s): 56810104 Comment: BP has fluctuated some but generally is elevated. Will hold HCTZ given her mildly elevated creatinine and slightly low Na level. Start amlodipine 5mg daily. Continue metoprolol XL 100mg daily. (5) DM2 (diabetes mellitus, type 2) Current Visit: Yes Status: Acute Comment: Sugars are moderately elevated on lab testing. Will start fingersticks AC and cover with lispro. Continue meformin 500mg qHS. Check A1c. (6) DVT prophylaxis Current Visit: Yes Status: Acute Code(s): DFZ0858 - SNOMED Code(s): 191435854 Comment: SQ heparin (7) Full code status Current Visit: Yes Status: Acute Code(s): Z78.9 - OTHER SPECIFIED HEALTH STATUS SNOMED Code(s): 816823603
[2017-09-26] MEDS ORDERED: Dextrose 50% Syringe 50 ML* 25 GM/50 ML SYRINGE IV PUSH PRN (08:03)
[2017-09-26] MEDS: Metoprolol Succinate XL TAB* 100 MG PO SCH (08:07)
[2017-09-26] MEDS: PARoxetine HCL TAB* 20 MG PO SCH (08:08)
[2017-09-26] MEDS: guaiFENesin ER TAB 600 MG PO SCH ×2 (08:08→20:42)
[2017-09-26] MEDS: Oseltamivir CAP* 30 MG CAP PO SCH ×2 (08:08→20:42)
[2017-09-26] MEDS: Senna TAB PO SCH ×2 (08:08→20:43)
[2017-09-26] MEDS: Fluticasone NASAL SPRAY 50MCG* 16 gm SPRAY BTL NASAL SCH (08:09)
[2017-09-26] MEDS: Calcium/Vitamin D TAB 250/125* TAB PO SCH ×2 (08:45→20:42)
[2017-09-26] MEDS: amLODIPine TAB* 5 MG PO SCH (08:45)
[2017-09-26] MEDS ORDERED: Oseltamivir CAP* 75 MG CAP PO SCH (09:00)
[2017-09-26] MEDS ORDERED: Pneumococcal *Vac Polyvalent 0.5 ML VIAL IM ONE (09:00)
[2017-09-26] MEDS ORDERED: Influenza VAC *QUAD* 2017-18* 0.5 ML SYRINGE IM ONE (09:00)
[2017-09-26] MEDS ORDERED: Hydrochlorothiazide TAB* 25 MG PO SCH (09:00)
--- NOTE | 2017-09-26 09:56 | HP ---
CC: JARAD Watts * HISTORY AND PHYSICAL: DATE OF ADMISSION: 09/25/17. TIME OF MY EVALUATION: 11:00 p.m. NURSE PRACTITIONER: JARAD Watts, [facility] Internal Medicine. CHIEF COMPLAINT: Shortness of breath/cough/back pain secondary to coughing. HISTORY OF PRESENT ILLNESS: Ms. Rubio is a 62-year-old female, accompanied by her daughter and her male roommate, who has a stated history of mild developmental delay as well as an array of other medical problems which will be detailed below, who developed an acute upper respiratory illness earlier today. The patient was last seen yesterday by her daughter and she was in her usual state of health. The patient was then seen earlier the evening of admission ( September 25) at 4 p.m. when she started to feel sick. She was driving towards [employer] with her family and she was coughing incessantly in the car. She was producing sputum. She started complaining of back pain at 5 p.m., which was presumed by her family to be secondary to the coughing. She had a diminished appetite and did not eat dinner well. She continued to be coughing. The patient was having difficulty breathing at one point and was noted to be wheezing. Her daughter realized that she is taking a pill for breast cancer, which she knows alters her immune status, and was concerned and brought the patient to the emergency room. The patient was evaluated, and a blood gas demonstrated an arterial PO2 of 43 on room air. She also tested positive for influenza A with an array of other lab abnormalities. The patient was referred for admission. PAST MEDICAL HISTORY: 1. Left breast cancer, status post bilateral mastectomy in January [address] Paola Granado. 2. COPD/asthma. 3. Hypertension. 4. Hyperlipidemia. 5. Borderline diabetes. 6. Anxiety/panic disorder. 7. GERD. 8. Osteoarthritis. 9. Overactive bladder. 10. Active smoking. PAST SURGICAL HISTORY: History of tubal ligation with total abdominal hysterectomy and bilateral salpingo-oophorectomy. OUTPATIENT MEDICATIONS: Unconfirmed, but based on a surgical history in the computer include the following medications: 1. Paroxetine 60 mg by mouth daily. 2. Metformin 500 mg by mouth daily. 3. Hydrochlorothiazide 25 mg by mouth daily. 4. Omeprazole 40 mg by mouth daily. 5. Oxybutynin ER 10 mg by mouth daily. 6. Gemfibrozil 600 mg by mouth daily twice daily. 7. Alendronate 70 mg by mouth weekly. 8. Metoprolol extended release 100 mg by mouth daily. 9. Montelukast 10 mg by mouth daily. 10. Levocetirizine 5 mg by mouth daily. 11. Fish oil 1000 mg by mouth daily twice daily. 12. Calcium with vitamin D 500/400 mg twice daily. 13. Vitamin D3 2000 units daily. 14. Naproxen 500 mg by mouth twice daily when needed. 15. QVAR inhaler one puff twice daily. 16. SM Acid Line Tester 150 mg by mouth twice daily. 17. Nasonex 50 mcg two sprays each nostril twice daily. 18. ProAir rescue inhaler 90 mcg strength two puffs q.i.d. p.r.n. 19. Alprazolam 0.25 mg by mouth twice daily as needed. ALLERGIES: None. FAMILY HISTORY: Positive for breast cancer, negative for ovarian cancer, negative for bleeding or clotting disorders. SOCIAL HISTORY: Patient lives alone, accompanied by her two daughters who live nearby. She is accompanied now by her daughter, Rupa Delgado, who is next of kin and surrogate decision maker; the patient is under disability. She has smoked half a pack of cigarettes for many years. No history of drug use. REVIEW OF SYSTEMS: Reviewed, but noncontributory based on the current presentation. PHYSICAL EXAMINATION GENERAL APPEARANCE: Elderly woman appears stated age, no apparent distress sitting in the emergency room, status post breathing treatment and steroids and initial antibiotic treatment with oxygen applied. VITAL SIGNS: Temperature 97-98 degrees Fahrenheit, pulse 130 on admission, down to 105 later following rehydration, respirations between 20 and 22, and regular without accessory muscle use. Oxygen saturation 95% on 3 liters nasal cannula. Blood pressure 120-140s over 50s. HEENT: Oropharynx is clear. Mucous membranes are moist. CHEST: Breath sounds are clear anteriorly and posteriorly. HEART: Tachycardic with no murmurs appreciated. ABDOMEN: Soft and nontender. EXTREMITIES: Without clubbing, cyanosis, or edema. NEURO: Neurologically her exam is nonfocal with normal sensory and motor proprioception components. SKIN: Dry and intact. LYMPH: No adenopathy appreciated. PSYCH: Quiet, limited medical lead. Much of the information is provided by her daughter, Rupa. ADMISSION DATA: Influenza A positive, influenza B negative, white blood cell count 6.3, hemoglobin 8.5; by reference she was 11.4 in January 2017, and back in 2015 her hemoglobin was 13.7. Her blood gas again was pH of 7.42, pCO2 of 41 , pO2 of 43, and that was on room air. Blood chemistry significant for an elevated creatinine of 1.18, relative to a baseline of 0.8 in January 2017. Glucose 136, lactic acid 1.1, urinalysis positive for leukocyte esterase and 2+ for white blood cells. IMPRESSION: Ms. Rubio is a 62-year-old female with influenza A pneumonia. The patient is dehydrated with an elevated creatinine. She certainly has respiratory distress and hypoxic respiratory failure. She will be treated with Tamiflu at treatment doses with adjustment for creatinine clearance. She will also receive IV antibiotics given her current urinary tract infection, but potentially bacterial component of her lung infection. The patient did receive steroids in the emergency room; and, at this point following a nebulizer treatment, I do not appreciate any wheezing and I will not continue steroids, but I will continue nebulizer treatment. Medication reconciliation will be conducted first thing in the morning with her many medications reordered at that time. The patient is stable at this time, but certainly is appropriate for inpatient status given the extent of her hypoxia and rapid onset of her symptoms, and the trajectory of her illness is unknown at this point, but I doubt she will be able to leave the hospital on September 26, 2017, and so I will admit her on inpatient status. TOTAL SPENT: Total time taken to admit Ms. Rubio was 65 minutes; greater than half that time was spent conducting history and physical examination in the room [id number] with the patient and interacting with her family. [id number]/[facility] #: [id number] UTE
[2017-09-26] MEDS: Insulin LISPRO* 1 UNITS UNIT SUBCUT SCH ×2 (12:20→16:38)
[2017-09-26] MEDS: metFORMIN* 500 MG TAB PO SCH (16:42)
[2017-09-26] MEDS ORDERED: Omeprazole CAP* 20 MG PO PRN (17:24)
[2017-09-26] MEDS: Acetaminophen TAB* 325 MG PO PRN (19:17)
[2017-09-26] MEDS: Montelukast Sodium TAB* 10 MG PO SCH (20:42)
[2017-09-26] MEDS: Cetirizine* 10 MG TAB PO SCH (20:43)
[2017-09-26] MEDS: Mometasone 220 MCG MDI INH SCH (21:02)
[2017-09-26] MEDS ORDERED: Levofloxacin 500 MG IVPREMIX(* 500 MG/100 ML BAG IVPB SCH (23:00)
[2017-09-27] MEDS: Heparin VIAL(*) 5000 UNITS/ML VIAL (FIVE THOUSAND) SUBCUT SCH ×3 (05:49→21:37)
[2017-09-27] MEDS: NS 0.9% 1000 ML* 1,000 ML IV SCH (06:57)
[2017-09-27] MEDS: Oseltamivir CAP* 30 MG CAP PO SCH (08:36)
[2017-09-27] MEDS: Metoprolol Succinate XL TAB* 100 MG PO SCH (08:36)
[2017-09-27] MEDS: guaiFENesin ER TAB 600 MG PO SCH ×2 (08:36→21:37)
[2017-09-27] MEDS: Calcium/Vitamin D TAB 250/125* TAB PO SCH ×2 (08:36→21:36)
[2017-09-27] MEDS: amLODIPine TAB* 5 MG PO SCH (08:36)
[2017-09-27] MEDS: Senna TAB PO SCH ×2 (08:36→21:36)
[2017-09-27] MEDS: PARoxetine HCL TAB* 20 MG PO SCH (08:36)
[2017-09-27] MEDS: Insulin LISPRO* 1 UNITS UNIT SUBCUT SCH ×3 (08:37→16:53)
[2017-09-27] MEDS: Fluticasone NASAL SPRAY 50MCG* 16 gm SPRAY BTL NASAL SCH (08:41)
[2017-09-27 14:08] LABS: Hematocrit 24 % (35-47); Hemoglobin 7.6 g/dl (12.0-16.0); Mean Corpuscular HGB Conc 32 g/dl (31-36); Mean Corpuscular Hemoglobin 23 pg (27-31); Mean Corpuscular Volume 72 fL (80-97); Mean Platelet Volume 8.4 um3 (7.4-10.4); Platelet Count 230 10^3/ul (150-450); Red Blood Count 3.29 10^6/ul (4.0-5.4); Red Cell Distribution Width 19 % (10.5-15)
[2017-09-27] MEDS: metFORMIN* 500 MG TAB PO SCH (17:27)
[2017-09-27] MEDS: Mometasone 220 MCG MDI INH SCH (19:40)
--- NOTE | 2017-09-27 20:09 | PN ---
Subjective Date of Service: 09/27/17 Interval History: Pt is feeling quite a bit better today. She denies any SOB. She is still having some cough. She denies any black stools or BRBPR. Objective Active Medications: Acetaminophen (Tylenol Tab*) 650 mg PO Q4H PRN PRN Reason: FEVER/PAIN Last Admin: 09/26/17 19:17 Dose: 650 mg Albuterol (Ventolin 2.5 Mg/3 Ml Neb.Sandra*) 2.5 mg INH [id number] AWAKE PRN PRN Reason: sob/wheezing Albuterol (Ventolin Hfa Inhaler*) 2 puff INH Q4HR PRN PRN Reason: SOB/WHEEZING Albuterol/Ipratropium (Duoneb (Albuterol 2.5 Mg/Ipratropium 0.5 Mg)) 1 neb INH Q4H PRN PRN Reason: SOB/WHEEZING Last Admin: 09/26/17 20:10 Dose: 1 neb Amlodipine Besylate (Norvasc Tab*) 5 mg PO DAILY [facility] Last Admin: 09/27/17 08:36 Dose: 5 mg Calcium/Vitamin D (Oscal D Tab 250/125*) 1 tab PO BID [facility] Last Admin: 09/27/17 08:36 Dose: 1 tab Cetirizine HCl (Zyrtec*) 10 mg PO 2100 [facility] Last Admin: 09/26/17 20:43 Dose: 10 mg Dextrose (D50w Syringe 50 Ml*) 12.5 gm IV PUSH .FOR FS < 60 - SS PRN PRN Reason: FS < 60 Fluticasone Propionate (Flonase Nasal [place] 50mcg*) 2 spray NASAL DAILY [facility] Last Admin: 09/27/17 08:41 Dose: Not Given Guaifenesin (Mucinex*) 1,200 mg PO BID [facility] Last Admin: 09/27/17 08:36 Dose: 1,200 mg Heparin Sodium (Porcine) (Heparin Vial(*)) 5,000 units SUBCUT Q8HR [facility] Last Admin: 09/27/17 14:52 Dose: 5,000 units Insulin Human Lispro (Humalog*) 0 units SUBCUT AC [facility] PRN Reason: Protocol Last Admin: 09/27/17 16:53 Dose: Not Given Metformin HCl (Glucophage*) 500 mg PO 1700 [facility] Last Admin: 09/27/17 17:27 Dose: 500 mg Metoprolol Succinate (Toprol Xl Tab*) 100 mg PO QAM [facility] Last Admin: 09/27/17 08:36 Dose: 100 mg Mometasone Furoate (Asmanex 220 Mcg Mdi *) 2 puff INH 2100 [facility] Last Admin: 09/27/17 19:40 Dose: 2 puff Montelukast Sodium (Singulair Tab*) 10 mg PO 2100 [facility] Last Admin: 09/26/17 20:42 Dose: 10 mg Omeprazole (Prilosec Cap*) 20 mg PO DAILY PRN PRN Reason: gerd Last Admin: 09/26/17 17:46 Dose: 20 mg Ondansetron HCl (Zofran Inj*) 4 mg IV Q4H PRN PRN Reason: NAUSEA/VOMITING Oseltamivir Phosphate (Tamiflu Cap*) 75 mg PO BID [facility] Stop: 09/30/17 21:01 Oxycodone/Acetaminophen (Percocet 5/325 Tab*) 1 tab PO Q4H PRN PRN Reason: PAIN Paroxetine HCl (Paxil Tab*) 60 mg PO [facility] Last Admin: 09/27/17 08:36 Dose: 60 mg Pneumococcal Polyvalent Vaccine (Pneumococcal Vac 23-Polyvalent*) 0.5 ml IM .ONCE ONE Stop: 09/28/17 09:01 Senna (Senokot Tab*) 1 tab PO BID [facility] Last Admin: 09/27/17 08:36 Dose: 1 tab Vital Signs - 8 hr 09/27/17 09/27/17 09/27/17 16:00 16:08 19:44 Temperature 99.1 F Pulse Rate 95 89 Respiratory 20 16 Rate Blood Pressure 145/67 (mmHg) O2 Sat by Pulse 97 97 91 Oximetry Oxygen Devices in Use Now: OxyMask Appearance: middle aged female sitting up in bed, NAD Ears/Nose/Mouth/Throat: Mucous Membranes Moist Respiratory: Symmetrical Chest Expansion and Respiratory Effort, Clear to Auscultation - few bibasilar crackles Cardiovascular: NL Sounds; No Murmurs; No JVD, RRR, No Edema Abdominal: NL Sounds; No Tenderness; No Distention, - - rectal exam with no masses, soft brown stool noted Extremities: No Clubbing, Cyanosis Skin: No Nodules or Sclerosis Neurological: Alert and Oriented x 3 Result Diagrams: 09/27/17 14:00 09/26/17 06:23 Microbiology and Other Data: Microbiology 09/27/17 16:05 Stool Occult Blood (JAMEEL) - Final Stool 09/26/17 04:45 Urine Culture - Final Urine No Growth (<1,000 CFU/mL) 09/26/17 16:25 Stool Occult Blood (JAMEEL) - Final Stool 09/26/17 08:45 Gram Stain - Final Sputum Assess/Plan/Problems-Billing Ms Rubio is a 62 yo F who has a h/o COPD, HTN, HLD, DM, anxiety and a h/o breast cancer who presented to the ER with c/o cough and body aches and was found to be positive for influenza A. - Patient Problems (1) Influenza A Current Visit: Yes Status: Acute Code(s): J10.1 - FLU DUE TO OTH IDENT INFLUENZA VIRUS W OTH RESP MANIFEST SNOMED Code(s): 153622558 Comment: Continue tamiflu at increased dose. Stop levaquin for now. If still hypoxic tomorrow will repeat CXR. (2) Anemia Current Visit: Yes Status: Acute Code(s): D64.9 - ANEMIA, UNSPECIFIED SNOMED Code(s): 694593435 Comment: The patient has a new marked anemia. Last January (2016) she was mildly anemic from her baseline however now it is quite a bit worse. She is markedly iron deficient. Will speak with GI tomorrow about possible scope (inpt vs outpt). (3) COPD (chronic obstructive pulmonary disease) Current Visit: Yes Status: Acute Code(s): J44.9 - CHRONIC OBSTRUCTIVE PULMONARY DISEASE, UNSPECIFIED SNOMED Code(s): 11308415 Comment: No signs of exacerbation. Continue albuterol, Qvar, singulair. Monitor for wheezing. When taken off the O2 she dropped to 82%. Recheck tomorrow. (4) HTN (hypertension) Current Visit: Yes Status: Acute Code(s): I10 - ESSENTIAL (PRIMARY) HYPERTENSION SNOMED Code(s): 85603340 Comment: BP is mildly elevated. Continue amlodipine and metoprolol XL. (5) DM2 (diabetes mellitus, type 2) Current Visit: Yes Status: Acute Comment: Sugars are mildly elevated but she is not requiring any lispro coverage. Stop checking and continue metformin. (6) DVT prophylaxis Current Visit: Yes Status: Acute Code(s): PBL7821 - SNOMED Code(s): 068462159 Comment: SQ heparin (7) Full code status Current Visit: Yes Status: Acute Code(s): Z78.9 - OTHER SPECIFIED HEALTH STATUS SNOMED Code(s): 478800405
[2017-09-27] MEDS: Oseltamivir CAP* 75 MG CAP PO SCH (21:36)
[2017-09-27] MEDS: Cetirizine* 10 MG TAB PO SCH (21:37)
[2017-09-27] MEDS: Montelukast Sodium TAB* 10 MG PO SCH (21:37)
[2017-09-28] MEDS: Acetaminophen TAB* 325 MG PO PRN (01:35)
[2017-09-28] MEDS: Heparin VIAL(*) 5000 UNITS/ML VIAL (FIVE THOUSAND) SUBCUT SCH (06:05)
[2017-09-28 06:45] LABS: Hematocrit 23 % (35-47); Hemoglobin 7.5 g/dl (12.0-16.0); Mean Corpuscular HGB Conc 32 g/dl (31-36); Mean Corpuscular Hemoglobin 23 pg (27-31); Mean Corpuscular Volume 71 fL (80-97); Mean Platelet Volume 8.3 um3 (7.4-10.4); Platelet Count 234 10^3/ul (150-450); Red Blood Count 3.26 10^6/ul (4.0-5.4); Red Cell Distribution Width 19 % (10.5-15); White Blood Count 4.8 10^3/ul (3.5-10.8)
[2017-09-28] MEDS: guaiFENesin ER TAB 600 MG PO SCH (08:17)
[2017-09-28] MEDS: PARoxetine HCL TAB* 20 MG PO SCH (08:17)
[2017-09-28] MEDS: Fluticasone NASAL SPRAY 50MCG* 16 gm SPRAY BTL NASAL SCH (08:18)
[2017-09-28] MEDS: Metoprolol Succinate XL TAB* 100 MG PO SCH (08:18)
[2017-09-28] MEDS: Senna TAB PO SCH (08:18)
[2017-09-28] MEDS: Oseltamivir CAP* 75 MG CAP PO SCH (08:18)
[2017-09-28] MEDS: Calcium/Vitamin D TAB 250/125* TAB PO SCH (08:18)
[2017-09-28] MEDS: amLODIPine TAB* 5 MG PO SCH (08:18)
[2017-09-28] MEDS ORDERED: Pneumococcal *Vac Polyvalent 0.5 ML VIAL IM ONE (09:00)
--- NOTE | 2017-09-28 11:01 | PN ---
Subjective Date of Service: 09/28/17 Interval History: Pt is feeling well. She denies any pain. She asks to have her O2 removed. She has not been coughing up any sputum. Objective Active Medications: Acetaminophen (Tylenol Tab*) 650 mg PO Q4H PRN PRN Reason: FEVER/PAIN Last Admin: 09/28/17 01:35 Dose: 650 mg Albuterol (Ventolin 2.5 Mg/3 Ml Neb.Sandra*) 2.5 mg INH [id number] AWAKE PRN PRN Reason: sob/wheezing Albuterol (Ventolin Hfa Inhaler*) 2 puff INH Q4HR PRN PRN Reason: SOB/WHEEZING Albuterol/Ipratropium (Duoneb (Albuterol 2.5 Mg/Ipratropium 0.5 Mg)) 1 neb INH Q4H PRN PRN Reason: SOB/WHEEZING Last Admin: 09/26/17 20:10 Dose: 1 neb Amlodipine Besylate (Norvasc Tab*) 5 mg PO DAILY [facility] Last Admin: 09/28/17 08:18 Dose: 5 mg Calcium/Vitamin D (Oscal D Tab 250/125*) 1 tab PO BID [facility] Last Admin: 09/28/17 08:18 Dose: 1 tab Cetirizine HCl (Zyrtec*) 10 mg PO 2100 [facility] Last Admin: 09/27/17 21:37 Dose: 10 mg Fluticasone Propionate (Flonase Nasal [place] 50mcg*) 2 spray NASAL DAILY [facility] Last Admin: 09/28/17 08:18 Dose: Not Given Guaifenesin (Mucinex*) 1,200 mg PO BID [facility] Last Admin: 09/28/17 08:17 Dose: 1,200 mg Heparin Sodium (Porcine) (Heparin Vial(*)) 5,000 units SUBCUT Q8HR [facility] Last Admin: 09/28/17 06:05 Dose: 5,000 units Metformin HCl (Glucophage*) 500 mg PO 1700 [facility] Last Admin: 09/27/17 17:27 Dose: 500 mg Metoprolol Succinate (Toprol Xl Tab*) 100 mg PO QAM [facility] Last Admin: 09/28/17 08:18 Dose: 100 mg Mometasone Furoate (Asmanex 220 Mcg Mdi *) 2 puff INH 2100 [facility] Last Admin: 09/27/17 19:40 Dose: 2 puff Montelukast Sodium (Singulair Tab*) 10 mg PO 2100 [facility] Last Admin: 09/27/17 21:37 Dose: 10 mg Omeprazole (Prilosec Cap*) 20 mg PO DAILY PRN PRN Reason: gerd Last Admin: 09/26/17 17:46 Dose: 20 mg Ondansetron HCl (Zofran Inj*) 4 mg IV Q4H PRN PRN Reason: NAUSEA/VOMITING Oseltamivir Phosphate (Tamiflu Cap*) 75 mg PO BID [facility] Stop: 09/30/17 21:01 Last Admin: 09/28/17 08:18 Dose: 75 mg Oxycodone/Acetaminophen (Percocet 5/325 Tab*) 1 tab PO Q4H PRN PRN Reason: PAIN Paroxetine HCl (Paxil Tab*) 60 mg PO QAM [facility] Last Admin: 09/28/17 08:17 Dose: 60 mg Senna (Senokot Tab*) 1 tab PO BID [facility] Last Admin: 09/28/17 08:18 Dose: 1 tab Vital Signs - 8 hr 09/28/17 09/28/17 09/28/17 03:37 04:14 07:39 Temperature 100.0 F 99.5 F Pulse Rate 102 86 101 Respiratory 18 16 22 Rate Blood Pressure 149/47 134/58 (mmHg) O2 Sat by Pulse 97 97 97 Oximetry 09/28/17 08:30 Temperature Pulse Rate Respiratory 20 Rate Blood Pressure (mmHg) O2 Sat by Pulse 93 Oximetry Oxygen Devices in Use Now: OxyMask Appearance: Middle aged female sitting up in bed, NAD Eyes: No Scleral Icterus Ears/Nose/Mouth/Throat: Mucous Membranes Moist Respiratory: Symmetrical Chest Expansion and Respiratory Effort, Clear to Auscultation Cardiovascular: NL Sounds; No Murmurs; No JVD, RRR, No Edema Abdominal: NL Sounds; No Tenderness; No Distention Extremities: No Clubbing, Cyanosis Skin: No Nodules or Sclerosis Neurological: Alert and Oriented x 3 Result Diagrams: 09/28/17 06:03 09/26/17 06:23 Microbiology and Other Data: Microbiology 09/27/17 16:05 Stool Occult Blood (JAMEEL) - Final Stool 09/26/17 04:45 Urine Culture - Final Urine No Growth (<1,000 CFU/mL) 09/26/17 16:25 Stool Occult Blood (JAMEEL) - Final Stool 09/26/17 08:45 Gram Stain - Final Sputum Assess/Plan/Problems-Billing Ms Rubio is a 62 yo F who has a h/o COPD, HTN, HLD, DM, anxiety and a h/o breast cancer who presented to the ER with c/o cough and body aches and was found to be positive for influenza A. - Patient Problems (1) Influenza A Current Visit: Yes Status: Acute Code(s): J10.1 - FLU DUE TO OTH IDENT INFLUENZA VIRUS W OTH RESP MANIFEST SNOMED Code(s): 823137118 Comment: Continue tamiflu to complete 5 days of therapy. Repeat CXR today as she is still hypoxic (checking a different site as she has fake nails). (2) Anemia Current Visit: Yes Status: Acute Code(s): D64.9 - ANEMIA, UNSPECIFIED SNOMED Code(s): 437902123 Comment: As the patient is heme negative can get outpatient EGD/colonoscopy in the very near future. Start ferrous sulfate BID. (3) COPD (chronic obstructive pulmonary disease) Current Visit: Yes Status: Acute Code(s): J44.9 - CHRONIC OBSTRUCTIVE PULMONARY DISEASE, UNSPECIFIED SNOMED Code(s): 89692593 Comment: No signs of exacerbation. Continue albuterol, Qvar, singulair. Monitor for wheezing. O2 sat after taking off her O2 was reportedly 78% but the validity of the reading is questioned. Will try another site. Check CXR. (4) HTN (hypertension) Current Visit: Yes Status: Acute Code(s): I10 - ESSENTIAL (PRIMARY) HYPERTENSION SNOMED Code(s): 07160209 Comment: BP is mildly elevated. Continue amlodipine and metoprolol XL. (5) DM2 (diabetes mellitus, type 2) Current Visit: Yes Status: Acute Comment: Continue metformin. (6) DVT prophylaxis Current Visit: Yes Status: Acute Code(s): AZS3987 - SNOMED Code(s): 023624833 Comment: SQ heparin (7) Full code status Current Visit: Yes Status: Acute Code(s): Z78.9 - OTHER SPECIFIED HEALTH STATUS SNOMED Code(s): 511301911
[2017-09-28 11:38] VITALS: BP 147/61
--- NOTE | 2017-09-28 14:14 | RAD ---
INDICATION: Hypoxia COMPARISON: Most recent comparison chest x-rays dated September 25, 2017 TECHNIQUE: Single AP portable view of the chest was obtained. FINDINGS: Image quality is compromised due to the relative inferiority of a portable chest x-ray. The heart and mediastinum exhibit normal size and contour. The pulmonary vasculature appears mildly engorged and indistinct. On this portable AP view there is the appearance of faint bibasilar costophrenic angle blunting.. Visualized bones are normal for the patient's age. IMPRESSION: In the correct clinical setting the chest x-ray findings could be compatible with mild pulmonary vascular congestion, possibly with small bibasilar pleural effusions.
--- NOTE | 2017-09-29 02:21 | DS ---
DISCHARGE SUMMARY: DATE OF ADMISSION: 09/25/17 DATE OF DISCHARGE: 09/28/17 PRIMARY CARE PROVIDER: Sharon Cornell NP PRINCIPAL DIAGNOSES: 1. Influenza A. 2. Iron-deficiency anemia. SECONDARY DIAGNOSES: 1. Chronic obstructive pulmonary disease. 2. Hypertension. 3. Hyperlipidemia. 4. Diabetes. HOSPITAL COURSE: Presented to the emergency room on 09/25/17 with complaints of shortness of breath, cough, and back pain. The patient was found to be positive for Influenza A and started on IV fluids and Tamiflu. The patient's respiratory status quickly improved. She was appearing to require supplemental oxygen at 2 L per minute; however, on further evaluation, it was identified as she was wearing fake nails. It was felt that the O2 saturation was not reliable from there. Another attempt at obtaining an accurate O2 saturation did reveal her oxygen levels to be in the high 90s on room air. The patient was felt to no longer need any supplemental oxygen. Chest x-ray was performed on the day of discharge due to the concern for hypoxia prior to the identification of the false O2 sat monitoring, which revealed possible pulmonary vascular congestion. The patient was receiving IV fluids. I believe at this time she should be able to clear any mild edema that may be present. She was having no complaints of shortness of breath at the time of her discharge. Also during the course of the hospitalization, the patient was found to be anemic. Her hemoglobin on admission was low at 8.5. In January 2017, her hemoglobin was 11.4 and in 2015, it was 13.7. On further investigation, it is clear the patient is markedly iron deficient. She was started on ferrous sulfate 325 mg p.o. twice daily and encouraged to take this with orange juice. She has also been given the phone number for the gastroenterology department to make an appointment for EGD and colonoscopy in the very near future. I did alert the linotyper insemination worker of her name and he will work to ensure that she gets in a quick period of time. The patient should continue to have this followed as an outpatient. The patient has been maintained otherwise on her usual home medication regimen. She has no signs of exacerbation of COPD. Her BP is under good control on amlodipine and metoprolol. Her hydrochlorothiazide was discontinued due to mild hyponatremia on admission and her diabetes has been under good control. FOLLOWUP CONCERNS: The patient is being discharged home today, 09/28/17. Activity level is as tolerated. Diet is diabetic. CONDITION ON DISCHARGE: Stable. TIME SPENT: 35 minutes were spent discharging this patient. [id number]/[facility] #: [id number] UTE
== END 2017-09-28 13:45 | disposition home or self-care (01) | DRG 139 ==
LOC: ED 21:07 → MED 23:41
PROVIDERS: ADMIT Internal Medicine; ATTEND Hospitalist
DX: J11.00 Influenza due to unidentified influenza virus with unspecified type of pneumonia (principal); J96.01 Acute respiratory failure with hypoxia; N39.0 Urinary tract infection, site not specified; E87.1 Hypo-osmolality and hyponatremia; E11.8 Type 2 diabetes mellitus with unspecified complications; J44.9 Chronic obstructive pulmonary disease, unspecified; D50.9 Iron deficiency anemia, unspecified; I10 Essential (primary) hypertension; E78.5 Hyperlipidemia, unspecified; C50.919 Malignant neoplasm of unspecified site of unspecified female breast; F41.0 Panic disorder [episodic paroxysmal anxiety]; K21.9 Gastro-esophageal reflux disease without esophagitis; M19.90 Unspecified osteoarthritis, unspecified site; N32.81 Overactive bladder; E86.0 Dehydration; F17.210 Nicotine dependence, cigarettes, uncomplicated; Z79.84 Long term (current) use of oral hypoglycemic drugs; Z79.899 Other long term (current) drug therapy; Z80.3 Family history of malignant neoplasm of breast
CPT/HCPCS: 36415; 36600; 71045; 71046; 80048; 80053; 81003; 81015; 82270; 82272; 82607; 82728; 82803; 83036; 83540; 83550; 83605; 83880; 84484; 85025; 85027; 85610; 85730; 86140; 87040; 87086; 87205; 87502; 90686; 90732; 93005; 94640; 94760; 99285; A9270-GY; J1644; J1885; J1956; J2930; J3475

== ENCOUNTER 2018-05-26 10:25 | Emergency (ER) | payer OTHER ==
--- NOTE | 2018-05-26 12:06 | ED ---
HPI Cardiac - HPI Summary HPI Summary: Patient is a 63 F w/ c/o chest pain, chest fluttering, SOB, diaphoresis, and dry cough onsetting 4 days ago. Palpitations and diaphoresis have been intermittent. She notes dizziness with ambulation as well, describes chest pain as "minor" presently. However, daughter, who is present in the room, states that patient had complaints of "severe" chest pain two days ago. She denies pain /swelling in legs. Patient is on home o2 2L NC all the time. PMHx of COPD, patient is a former smoker. She also states she had a "mini heart attack". FMHx of cardiac disease, grandfather of [place] at 45. PMHx of breast cancer, PSHx of mastectomy. On triage, pain is rated 3/10, nothing is noted to aggravate/ alleviate Sx. Home medications and allergies are reviewed. - History of Current Complaint Chief Complaint: EDShortnessOfBreath Stated Complaint: SOB/IRREGULAR HEARTBEAT Time Seen by Provider: 05/26/18 11:50 Hx Obtained From: Patient, Family/Econometrician - family members Onset/Duration: Started Days Ago - four days ago, Still Present Timing: Constant, Intermittent - dizziness and diaphoresis, Lasting Days - four days ago Initial Severity: Severe Current Severity: Mild - 3/10 Pain Intensity: 3 Pain Scale Used: 0-10 Numeric - 3/10 Character: Fluttering Aggravating Factor(s): Exertion Alleviating Factor(s): Nothing Associated Signs and Symptoms: Positive: Chest Pain, Dizziness, Shortness of Breath, Diaphoresis, Cough - dry. Negative: Swelling, Calf Pain/Swelling - Additional Pertinent History Primary Care Physician: ANTONIO - Allergy/Home Medications Allergies/Adverse Reactions: Allergies Allergy/AdvReac Type Severity Reaction Status Date / Time No Known Drug Allergies Allergy See Comment Verified 09/26/17 00:29 Environmental Allergy Congestion Uncoded 09/25/17 21:12 Seasonal Allergy Congestion Uncoded 09/25/17 21:12 PMH/Surg Hx/FS Hx/Imm Hx Endocrine/Hematology History: Reports: Hx Diabetes Denies: Hx Thyroid Disease Cardiovascular History: Reports: Hx Hypertension, Other Cardiovascular Problems/ Disorders - IRREGULAR HR Denies: Hx Pacemaker/ICD Respiratory History: Reports: Other Respiratory Problems/Disorders - getting regular allergy injections Denies: Hx Asthma, Hx Chronic Obstructive Pulmonary Disease (COPD) GI History: Reports: Hx Gastroesophageal Reflux Disease - controlled with medication Denies: Hx Ulcer History: Denies: Hx Renal Disease Musculoskeletal History: Reports: Hx Arthritis - rhuematoid and osteo, Hx Osteoporosis Sensory History: Reports: Hx Contacts or Glasses Denies: Hx Hearing Aid Opthamlomology History: Reports: Hx Contacts or Glasses Neurological History: Reports: Hx Migraine - at most twice a month, Other Neuro Impairments/Disorders - NUMBNESS AND TINGLING LEFT UPPER EXTREMITY AND HAND Psychiatric History: Reports: Hx Anxiety - controlled with medication, Hx Depression - controlled with medication, Hx Panic Disorder - ANXIETY - Cancer History Cancer Type, Location and Year: breast CA Hx Hematologic Symptoms: No Hx Chemotherapy: No Hx Radiation Therapy: No - Surgical History Surgery Procedure, Year, and Place: hysterectomy. tubal. mastectomy 01/2017 Hx Anesthesia Reactions: No - Immunization History Date of Influenza Vaccine: has not received Infectious Disease History: Yes Infectious Disease History: Denies: Hx Clostridium Difficile, Hx Hepatitis, Hx Human Immunodeficiency Virus (HIV), Hx of Known/Suspected MRSA, Hx Shingles, Hx Tuberculosis, Hx Known/ Suspected VRE, Hx Known/Suspected VRSA, History Other Infectious Disease, Traveled Outside the [place] in Last 30 Days - Family History Known Family History: Positive: Cardiac Disease, Other - Breast CA - Social History Alcohol Use: None Substance Use Type: Reports: None Substance Use Comment - Amount & Last Used: 2 cups of coffee/1 liter diet coke, per day Hx Tobacco Use: Yes Smoking Status (MU): Light Every Day Tobacco Smoker Type: Cigarettes Amount Used/How Often: 1 pack per week Length of Time of Smoking/Using Tobacco: 40 years Have You Smoked in the Last Year: Yes Review of Systems Positive: Skin Diaphoresis Positive: Palpitations - fluttering , Chest Pain Positive: Shortness Of Breath, Cough - dry Positive: Other - NEGATIVE: BLE pain . Negative: Edema Neurological: Other - POSITIVE - DIZZINESS All Other Systems Reviewed And Are Negative: Yes Physical Exam - Summary Physical Exam Summary: Appearance: Well-appearing, Well-nourished, lying in bed comfortably Skin: Warm, dry, no obvious rash Eyes: sclera anicteric, no conjunctival pallor ENT: mucous membranes moist, pharynx appears normal Neck: Supple, nontender Respiratory: Clear to auscultation, no signs of respiratory distress. Breath sounds are somewhat distant with some expiratory wheezing audible Cardiovascular: Normal S1, S2. No murmurs. Normal distal pulses in tibial and radial bilaterally. Abdomen: Soft, nontender, normal active bowel sounds present Musculoskeletal: Normal, Strength/ROM Intact Neurological: A&Ox3, awake and alert, mentation is normal, speech is fluent and appropriate Psychiatric: affect is normal, does not appear anxious or depressed Triage Information Reviewed: Yes Vital Signs On Initial Exam: Initial Vitals Temp Pulse Resp BP Pulse Ox 97.3 F 90 22 139/87 96 05/26/18 10:28 05/26/18 10:28 05/26/18 10:28 05/26/18 10:28 05/26/18 10:28 Vital Signs Reviewed: Yes Diagnostics - Vital Signs Vital Signs Temp Pulse Resp BP Pulse Ox 05/26/18 10:28 97.3 F 90 22 139/87 96 - Laboratory Result Diagrams: 05/26/18 12:32 05/26/18 12:32 Lab Statement: Any lab studies that have been ordered have been reviewed, and results considered in the medical decision making process. - Radiology CXR Radiology Interpretation Completed By: Radiologist Summary of Radiographic Findings: CXR IMPRESSION: 1. NEW RIGHT UPPER LOBE NODULAR DENSITY. RECOMMEND A CT OF THE CHEST FOR FURTHER. EVALUATION. 2. NO EVIDENCE FOR ACUTE FINDING. THIS REPORT WAS REVIEWED BY ED PHYSICIAN. - CT CHEST CT CT Interpretation Completed By: Radiologist Summary of CT Findings: CT CHEST IMPRESSION: RIGHT UPPER LOBE PULMONARY NODULE SUSPICIOUS FOR A PRIMARY LUNG CARCINOMA. LESS LIKELY METASTATIC DISEASE. RECOMMEND A PET CT STUDY FOR FURTHER EVALUATION. THIS REPORT WAS REVIEWED BY ED PHYSICIAN. - EKG 1218 Cardiac Rate: NL EKG Rhythm: Sinus Rhythm - rate of 75 bpm Summary of EKG Findings: Normal EKG: NSR at 75 BPM, P waves, QRS complex, and T waves are within normal limits, T waves and intervals are normal, no ischemic changes. This is a normal EKG Re-Evaluation - Re-Evaluation First Eval Re-Evaluation Time: 15:35 Comment: Results of labs and tests were discussed with patient. PCP will be contacted, patient likely to be discharged afterwards. Patient is agreeable with this plan. Disposition - Course Course Of Treatment: Patient is a 63 F w/ c/o chest pain, chest fluttering, SOB , diaphoresis, and dry cough onsetting 4 days ago. Palpitations and diaphoresis have been intermittent. She notes dizziness with ambulation as well, describes chest pain as "minor" presently. However, daughter, who is present in the room, states that patient had complaints of "severe" chest pain two days ago. She denies pain/swelling in legs. Patient is on home o2 2L NC all the time. PMHx of COPD, patient is a former smoker. She also states she had a "mini heart attack" . FMHx of cardiac disease, grandfather of [place] at 45. PMHx of breast cancer, PSHx of mastectomy. Physical exam was normal. During ED course, patient was given Prednisone 40 mg PO ED ONCE ONE. Labs showed MCH 32, D-dimer < 200, BUN/ creatinine 23.2, glucose 148, calcium 10.6, alk phos 128. Trop was negative. Normal EKG: NSR at 75 BPM, P waves, QRS complex, and T waves are within normal limits, T waves and intervals are normal, no ischemic changes. This is a normal EKG. CXR IMPRESSION: 1. NEW RIGHT UPPER LOBE NODULAR DENSITY. RECOMMEND A CT OF THE CHEST FOR FURTHER. EVALUATION. 2. NO EVIDENCE FOR ACUTE FINDING. CT CHEST IMPRESSION: RIGHT UPPER LOBE PULMONARY NODULE SUSPICIOUS FOR A PRIMARY LUNG CARCINOMA. LESS LIKELY METASTATIC DISEASE. RECOMMEND A PET CT STUDY FOR FURTHER EVALUATION. Discussed results of CXR and CT Chest with patient's PCP, GOLD Cornell. She will arrange followup tests through patient's oncologist. Results of labs and tests were discussed with patient. She is agreeable with discharge. - Diagnoses Provider Diagnoses: COPD exacerbation, Lung nodule - Physician Notifications Discussed Care Of Patient With: Sharon Cornell Time Discussed With Above Provider: 15:46 Instructed by Provider To: Other - Discussed results of CXR and CT Chest with [employer] Sharon Cornell. She will arrange followup tests through patient's oncologist Discharge - Sign-Out/Discharge Documenting (check all that apply): Patient Departure - discharge - Discharge Plan Condition: Stable Disposition: HOME Prescriptions: Azithromycin TAB* [Zithromax TAB (Z-ZAIRA) 250 mg #6 tabs] 2 tab PO .TODAY, THEN 1 DAILY #1 zaira predniSONE TAB* [Deltasone 20 MG TAB*] 40 mg PO DAILY 5 Days #10 tab Patient Education Materials: COPD (Chronic Obstructive Pulmonary Disease) (ED) Referrals: Sharon Cornell, [employer] [Primary Care Provider] - Additional Instructions: We did find a small nodule on the right lung. While this does not have anything to do with your present symptoms, it does need further workup. I spoke to Sharon Cornell who will arrange followup tests through your oncologist, as we need to find out if this is a lung cancer or not. - Billing Disposition and Condition Condition: STABLE Disposition: Home - Attestation Statements Document Initiated by Nica: Yes Documenting Scribe: MOUSTAPHA TORRES Provider For Whom Nica is Documenting (Include Credential): TOSHA BARNES MD Scribe Attestation: I, MOUSTAPHA TORRES , scribed for TOSHA BRANES MD on 05/27/18 at 1006. Scribe Documentation Reviewed: Yes Provider Attestation: The documentation as recorded by the MOUSTAPHA knowles accurately reflects the service I personally performed and the decisions made by me, TOSHA BARNES MD Status of Scribe Document: Viewed
[2018-05-26 12:46] LABS: ABS Basophils 0.1 10^3/ul (0-0.2); ABS Eosinophils 0.2 10^3/ul (0-0.6); ABS Lymphocytes 1.8 10^3/ul (1.0-4.8); ABS Monocytes 0.4 10^3/ul (0-0.8); ABS Neutrophils 2.9 10^3/ul (1.5-7.7); ABS Nucleated RBC 0 10^3/ul; Eosinophil % 3.2 %; Hematocrit 40 % (35-47); Hemoglobin 14.1 g/dl (12.0-16.0); Lymphocyte % 34.2 %; Mean Corpuscular HGB Conc 36 g/dl (31-36); Mean Corpuscular Hemoglobin 32 pg (27-31); Mean Corpuscular Volume 88 fL (80-97); Nucleated Red Blood Cells % 0.5; Platelet Count 260 10^3/ul (150-450); Red Blood Count 4.48 10^6/ul (4.00-5.40); Red Cell Distribution Width 13 % (10.5-15); White Blood Count 5.3 10^3/ul (3.5-10.8)
[2018-05-26 13:01] LABS: EGFR Non-African American 70.4 (>60)
[2018-05-26] MEDS ORDERED: predniSONE TAB* 20 MG PO ONE (15:40)
[2018-05-26 16:04] VITALS: BP 141/90
== END 2018-05-26 16:03 | disposition home or self-care (01) ==
LOC: ED 10:25
DX: J44.1 Chronic obstructive pulmonary disease with (acute) exacerbation (principal); R91.1 Solitary pulmonary nodule; F17.210 Nicotine dependence, cigarettes, uncomplicated; E11.9 Type 2 diabetes mellitus without complications; I10 Essential (primary) hypertension; I49.9 Cardiac arrhythmia, unspecified; K21.9 Gastro-esophageal reflux disease without esophagitis; M06.9 Rheumatoid arthritis, unspecified; M19.90 Unspecified osteoarthritis, unspecified site; Z85.3 Personal history of malignant neoplasm of breast; I25.2 Old myocardial infarction; Z82.49 Family history of ischemic heart disease and other diseases of the circulatory system
CPT/HCPCS: 36415; 71046; 71250; 80053; 84484; 85025; 85379; 93005; 99282; J7512

== ENCOUNTER 2018-10-27 09:36 | Emergency (ER) | payer OTHER ==
[2018-10-27 09:44] VITALS: BP 124/74
--- NOTE | 2018-10-27 10:23 | UC ---
Respiratory Complaint HPI - HPI Summary HPI Summary: 63 yo female presents with intermittently productive cough for the last week getting progressively worse. She also has some sinus pain/pressure/congestion. She is most concerned because she has a lung nodule and tells me that she is schedule to undergo a biopsy of this in the coming weeks and does not want to be ill and have this rescheduled. She is a former smoker, but quit about 1 year ago. Denies fever, chills, SOB, chest pain. - History of Current Complaint Chief Complaint: UCRespiratory Stated Complaint: COUGH Time Seen by Provider: 10/27/18 10:22 Hx Obtained From: Patient Onset/Duration: Gradual Onset Severity Currently: None Pain Intensity: 0 Pain Scale Used: 0-10 Numeric Character: Cough: Productive - Allergies/Home Medications Allergies/Adverse Reactions: Allergies Allergy/AdvReac Type Severity Reaction Status Date / Time No Known Drug Allergies Allergy See Comment Verified 10/27/18 09:44 Environmental Allergy Congestion Uncoded 10/27/18 09:44 Seasonal Allergy Congestion Uncoded 10/27/18 09:44 PMH/Surg Hx/FS Hx/Imm Hx - Additional Past Medical History Additional PMH: BRCA Lung nodule Overactive bladder Endocrine History: Diabetes Respiratory History: Asthma GI/ History: Gastroesophageal Reflux Psychological History: Anxiety, Depression - Surgical History Surgical History: Yes Surgery Procedure, Year, and Place: hysterectomy. tubal. mastectomy 01/2017 - Family History Known Family History: Positive: Cardiac Disease, Other - Breast CA - Social History Alcohol Use: None Substance Use Type: None Substance Use Comment - Amount & Last Used: 2 cups of coffee/1 liter diet coke, per day Smoking Status (MU): Former Smoker Type: Cigarettes Amount Used/How Often: 1 pack per week Length of Time of Smoking/Using Tobacco: 40 years Have You Smoked in the Last Year: Yes When Did the Patient Quit Smoking/Using Tobacco: 1 year ago Household Exposure Type: Cigarettes - Immunization History Most Recent Influenza Vaccination: fall 2015 Most Recent Pneumonia Vaccination: 2009 Review of Systems All Other Systems Reviewed And Are Negative: Yes Constitutional: Positive: Negative Skin: Positive: Negative Eyes: Positive: Negative ENT: Positive: Nasal Discharge, Sinus Congestion, Sinus Pain/Tenderness Respiratory: Positive: Cough Cardiovascular: Positive: Negative Gastrointestinal: Positive: Negative Neurovascular: Positive: Negative Neurological: Positive: Negative Psychological: Positive: Negative Physical Exam - Summary Physical Exam Summary: GENERAL: NAD. WDWN. No pain distress. SKIN: No rashes, sores, lesions, or open wounds. HEENT: Head: AT/NC Eyes: EOM intact. Conjunctiva clear without inflammation or discharge. Ears: Hearing grossly normal. TMs intact, no bulging, erythema, or edema. Nose: Nasal mucosa mildly swollen and erythematous with yellow/ clear discharge. TTP maxillary and frontal sinus. Positive post nasal drip Throat: Posterior oropharynx without exudates, erythema, or tonsillar enlargement. Uvula midline. NECK: Supple. Nontender. No lymphadenopathy. CHEST: Mild wheezing throughout without crackles or coarse breath sounds. No accessory muscle use. Breathing comfortably and in no distress. CV: RRR. Without m/r/g. Pulses intact. NEURO: Alert. PSYCH: Age appropriate behavior. Triage Information Reviewed: Yes Vital Signs: Initial Vital Signs Temp 97.2 F 10/27/18 09:40 Pulse 111 10/27/18 09:40 Resp 20 10/27/18 09:40 BP 124/74 10/27/18 09:40 Pulse Ox 98 10/27/18 09:40 Vital Signs Reviewed: Yes Respiratory Course/Dx - Course Course Of Treatment: CXR: IMPRESSION: OVERLYING THE RIGHT UPPER LUNG IS A STABLE 1.5 CM PULMONARY NODULE. THE LUNGS ARE OTHERWISE GROSSLY CLEAR WITHOUT RADIOGRAPHICALLY APPARENT ACUTE ABNORMALITY. Given her extensive comorbidities and length of symptoms - will treat with anbx at this time and have her f/u with her PCP if symptoms do not improve. - Differential Dx/Diagnosis Provider Diagnosis: Sinusitis, Bronchitis Discharge - Sign-Out/Discharge Documenting (check all that apply): Patient Departure All imaging exams completed and their final reports reviewed: No Studies - Discharge Plan Condition: Stable Disposition: HOME Prescriptions: Azithromycin TAB* [Zithromax TAB (Z-ZAIRA) 250 mg #6 tabs] 2 tab PO .TODAY, THEN 1 DAILY #1 zaira Benzonatate CAP* [Tessalon 100 MG CAP*] 100 mg PO TID PRN #21 cap PRN Reason: Cough Codeine Phosphate/Guaifenesin [Guaifen-Codeine 100-10 mg/5 ml] 5 ml PO BEDTIME PRN #35 ml MDD 5mL PRN Reason: Cough Patient Education Materials: Acute Bronchitis (ED) Referrals: Sharon Cornell NP [Primary Care Provider] - Additional Instructions: If you develop a fever, shortness of breath, chest pain, new or worsening symptoms - please call your PCP or go to the ED immediately. - Billing Disposition and Condition Condition: STABLE Disposition: Home
== END 2018-10-27 11:30 | disposition home or self-care (01) ==
LOC: UCEAST 09:36
DX: J32.9 Chronic sinusitis, unspecified (principal); J45.909 Unspecified asthma, uncomplicated; R91.1 Solitary pulmonary nodule; C50.919 Malignant neoplasm of unspecified site of unspecified female breast; N32.81 Overactive bladder; E11.9 Type 2 diabetes mellitus without complications; K21.9 Gastro-esophageal reflux disease without esophagitis; F41.9 Anxiety disorder, unspecified; F32.9 Major depressive disorder, single episode, unspecified; Z87.891 Personal history of nicotine dependence
CPT/HCPCS: 71046; 99212; G0463

== ENCOUNTER → 2018-11-03 10:59 | Day surgery (SDC) | payer OTHER ==
[~2018-11-03 10:59] MED LIST changes: -Buffered Lidocaine 0.9% SYRIN* 5 ML/SYR SYRINGE INTRADERM ONE; +Buffered Lidocaine 1% SYRIN* 1 ML/SYRINGE INTRADERM ONE; +Famotidine IV* 10 MG/ML 2 ML (20 mg) ONE; +Lactated Ringers 1000 ML Bag* 1,000 ML IV SCH; +Metoprolol Succinate XL TAB* 100 MG PO ONE; +Metoprolol Tartrate IV* 1 MG/ML 5 ML VIAL ONE; -Scopolamine 1.5 mg* PATCH TRANSDERM ONE; +Succinylcholine* 20 MG/ML 10 ML VIAL ONE; +fentaNYL* 50 MCG/ML 2 ML VIAL (100 MCG VIAL) ONE
[2018-11-03 12:12] LABS: Platelet Count 308 10^3/uL (150-450)
[2018-11-03 12:21] LABS: Activated Partial Thrombo Time 35.1 seconds (26.0-36.3); INR 1.09 (0.82-1.09)
[2018-11-03 16:17] VITALS: BP 155/88
== END | disposition home or self-care (01) ==
LOC: OR 10:59
PROVIDERS: ATTEND Radiology Diagnostic Radiology
DX: C34.11 Malignant neoplasm of upper lobe, right bronchus or lung (principal); J44.9 Chronic obstructive pulmonary disease, unspecified; E11.9 Type 2 diabetes mellitus without complications; Z79.84 Long term (current) use of oral hypoglycemic drugs; Z87.891 Personal history of nicotine dependence; F41.8 Other specified anxiety disorders; K21.9 Gastro-esophageal reflux disease without esophagitis; Z17.0 Estrogen receptor positive status [ER+]
CPT/HCPCS: 10009; 36415; 77012; 81445; 85049; 85610; 85730; 88172; 88173; 88305; 88341; 88342; 88360; A9270-GY; J0330; J3010; J3490

== ENCOUNTER 2018-12-04 10:39 | Day surgery (SDC) | payer OTHER ==
[~2018-12-04 10:39] MED LIST changes: -Famotidine IV* 10 MG/ML 2 ML (20 mg) IV ONE; -Famotidine IV* 10 MG/ML 2 ML (20 mg) ONE; -Metoprolol Succinate XL TAB* 100 MG PO ONE; -Metoprolol Tartrate IV* 1 MG/ML 5 ML VIAL ONE; -Succinylcholine* 20 MG/ML 10 ML VIAL ONE; -fentaNYL* 50 MCG/ML 2 ML VIAL (100 MCG VIAL) ONE
[2018-12-04] MEDS ORDERED: Midazolam* 1 MG/ML 2 ML VIAL (2 MG) ONE (12:56)
[2018-12-04] MEDS ORDERED: fentaNYL* 50 MCG/ML 2 ML VIAL (100 MCG VIAL) ONE (12:56)
[2018-12-04] MEDS ORDERED: Benzocaine/Butamben/Tetracain (CETACAINE - SINGLE USE) 5 gm TOPICAL ONE (13:41)
[2018-12-04] MEDS ORDERED: Propofol* 10 MG/ML 20 ML BTL ONE (13:56)
[2018-12-04] MEDS ORDERED: Lidocaine 2% PF * 5 ML VIAL ONE (13:56)
[2018-12-04] MEDS ORDERED: Ondansetron INJ* 2 MG/ML VIAL ONE (13:56)
[2018-12-04] MEDS ORDERED: Dexamethasone IV* 4 MG/ML 1 ML (4 MG) ONE (13:56)
[2018-12-04] MEDS ORDERED: Succinylcholine* 20 MG/ML 10 ML VIAL ONE (13:56)
[2018-12-04] MEDS ORDERED: Metoprolol Succinate XL TAB* 100 MG PO ONE (14:00)
[2018-12-04] MEDS ORDERED: Ketorolac INJ* 30 MG/ML 1 ML VIAL IV PRN (14:10)
[2018-12-04] MEDS ORDERED: DiMENhydriNATE IV* 50 MG/ML VIAL IV PUSH PRN (14:10)
[2018-12-04] MEDS ORDERED: Acetaminophen TAB* 325 MG PO PRN (14:10)
[2018-12-04] MEDS ORDERED: fentaNYL* 50 MCG/ML 2 ML VIAL (100 MCG VIAL) IV PRN (14:10)
[2018-12-04] MEDS ORDERED: Naloxone* 0.4 MG/ML 1 ML VIAL IV PRN (14:10)
[2018-12-04] MEDS ORDERED: Metoclopramide IV* 5 MG/ML 2 ML VIAL ONE (14:20)
--- NOTE | 2018-12-04 16:24 | PRO ---
BRONCHOSCOPY REPORT: DATE OF PROCEDURE: 12/04/18 PROCEDURE PERFORMED: Bronchoscopy with endobronchial ultrasound-guided fine needle aspiration of mediastinal and hilar nodes for lung cancer staging. ANESTHESIOLOGIST: Dr. Martin. ANESTHESIA: General anesthesia. DESCRIPTION OF PROCEDURE: Informed consent was obtained from the patient prior to the procedure after all the risks and benefits were thoroughly explained. The patient recently underwent CT-guided biopsy which was positive for lung cancer. The patient was scheduled for staging bronchoscopy. The patient was intubated with size 8.5 endotracheal tube. A flexible Olympus bronchoscope was inserted through the ET tube for airway inspection. No endobronchial lesions were noted. 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 There was evidence of thin secretions. The bronchoscope was then advanced into the left bronchial tree which was inspected. White secretions, slightly thick were noted and were suctioned out. No endobronchial lesions were noted on the left side. The bronchoscope was then advanced into the right bronchial tree which was inspected. No endobronchial lesions were noted. Thin secretions were noted and were suctioned out. The bronchoscope was then withdrawn. An EBUS bronchoscope was inserted. Station 7 was mildly enlarged and was accessed with 2 passes. Rapid onsite evaluation revealed lymphatic tissue and no malignant cells were noted. No enlargement of the left- sided nodes were noted and were not biopsied. Station R4 was then accessed with 2 passes. The R4 was minimally enlarged. Rapid onsite evaluation revealed lymphatic tissue. No malignant cells were noted. R10 was then accessed with 1 pass. Rapid onsite evaluation revealed lymphatic tissue. No malignant cells were noted. Station R12 was accessed with 2 passes. First pass showed blood and bronchial cells. The second pass showed lymphatic tissue with no malignant cells. R15 was then accessed with 1 pass. Rapid onsite evaluation revealed lymphatic tissue, no malignant cells. The bronchoscope was then withdrawn. Flexible Olympus bronchoscope was inserted for inspection of any bleeding. No significant bleeding noted. The bronchoscope was then withdrawn. The patient was extubated and seen in Recovery in optimal condition. The rest of the specimen was placed in [facility]. [id number]/[facility] #: [id number] [facility]
[2018-12-04 16:27] VITALS: BP 122/68
== END 2018-12-04 16:27 | disposition home or self-care (01) ==
LOC: OR 10:39
PROVIDERS: ATTEND Internal Medicine
DX: C34.11 Malignant neoplasm of upper lobe, right bronchus or lung (principal); J44.9 Chronic obstructive pulmonary disease, unspecified; R09.02 Hypoxemia; I10 Essential (primary) hypertension; E78.5 Hyperlipidemia, unspecified; K21.9 Gastro-esophageal reflux disease without esophagitis; F41.8 Other specified anxiety disorders; E11.9 Type 2 diabetes mellitus without complications; Z79.84 Long term (current) use of oral hypoglycemic drugs; F79 Unspecified intellectual disabilities; Z87.891 Personal history of nicotine dependence
CPT/HCPCS: 88172; 88173; 88177; 88305; A9270-GY; J0330; J1100; J2250; J2405; J2704; J2765; J3010

== ENCOUNTER 2022-04-14 22:45 | Inpatient (IN) ==
[2022-04-14 23:47] LABS: Activated Partial Thrombo Time 28.2 seconds (26.0-38.0); INR 1.1 (0.89-1.11)
[2022-04-14 23:48] LABS: ABS Lymphocytes 0.7 10^3/ul (1.0-4.8); ABS Monocytes 0.5 10^3/ul (0-0.8); ABS Neutrophils 6.4 10^3/ul (1.5-7.7); Eosinophil % 0.3 %; Hematocrit 35 % (35-47); Hemoglobin 11.6 g/dL (12.0-16.0); Lymphocyte % 9.6 %; Mean Corpuscular HGB Conc 33 g/dL (31-36); Mean Corpuscular Hemoglobin 27 pg (27-31); Mean Corpuscular Volume 82 fL (80-97); Mean Platelet Volume 7.9 fL (7.4-10.4); Platelet Count 232 10^3/uL (150-450); Red Blood Count 4.27 10^6 /uL (3.70-4.87); Red Cell Distribution Width 15 % (10-15); White Blood Count 7.7 10^3/uL (3.5-10.8)
[2022-04-14 23:50] LABS: Urine Appearance Cloudy; Urine Bilirubin Negative (Negative); Urine Blood Negative (Negative); Urine Color Yellow; Urine Glucose 1+(50 mg/dL) (Negative); Urine Ketones Negative (Negative); Urine Nitrite Negative (Negative); Urine Protein Negative (Negative); Urine Specific Gravity 1.016 (1.002-1.030); Urine Urobilinogen Negative (Negative)
[2022-04-15] MEDS ORDERED: Piperacillin/Tazobac ADVAN 3.375 GM in NS 0.9% 100 ml BAG 100 ML IV ONE ×3 (00:05→07:00)
[2022-04-15 00:09] LABS: Albumin 4.2 g/dL (3.2-5.2); Albumin/Globulin Ratio 1.6 (1-3); C Reactive Protein 40.58 mg/L (<8.01); Calcium 9.7 mg/dL (8.6-10.3); Globulin 2.6 g/dL (2-4); Potassium 3.9 mmol/L (3.5-5.0); Total Bilirubin 0.5 mg/dL (0.2-1.0); Total Protein 6.8 g/dL (6.4-8.9)
[2022-04-15] MEDS ORDERED: Iodixanol (CONTRAST) 320 MG/ML 100 ML SDV IV ONE (00:14)
[2022-04-15 00:33] LABS: Urine Bacteria 1+ (Absent); Urine Red Blood Cell Absent (Absent); Urine Squamous Epithelial Cell Present (Absent); Urine White Blood Cell 3+(>20/hpf) (Absent)
[2022-04-15] MEDS ORDERED: Dextrose 50% Syringe 50 ml 25 GM/50 ML SYRINGE IV PUSH PRN (03:58)
[2022-04-15] MEDS ORDERED: Acetaminophen IV 1 GM/100ML 1,000 MG/100 ML BAG IV PRN (03:59)
[2022-04-15] MEDS ORDERED: Zosyn per Pharmacy NOTE FOLLOW UP SCH ×2 (04:00)
[2022-04-15] MEDS: Enoxaparin 40 MG/0.4 ML SYR SUBCUT SCH (04:16)
[2022-04-15] MEDS ORDERED: Albuterol HFA INHALER 8 gm MDI INH PRN (04:29)
[2022-04-15] MEDS: ZOSYN 3.375 GM Q8H per EXTENDED INFUSION IV SCH ×3 (04:41→21:16)
[2022-04-15 05:30] LABS: TSH Ultra Thyroid Stim Horm 0.8 mcIU/mL (0.34-5.60)
[2022-04-15] MEDS: Tiotropium Brom/Olodaterol MDI INH SCH (09:01)
[2022-04-15] MEDS: Cholecalciferol (VIT D3) 1,000 unit TAB PO SCH (09:02)
[2022-04-15] MEDS: CMCS: OMEGA-3 FATTY ACID 1000 mg(NF) PO SCH ×2 (09:03→20:24)
[2022-04-15] MEDS: ANASTROZOLE 1 MG PO SCH (09:04)
[2022-04-15] MEDS: NF: ICOSAPENT ETHYL 1 GM CAPSULE (NF) PO SCH ×2 (09:18→21:02)
[2022-04-15] MEDS: Ciproflox/Dexameth OTIC.SUSP 7.5 ML BTL BOTH EARS SCH ×2 (13:06→20:24)
[2022-04-15] MEDS: Mometasone 220 MCG MDI INH SCH (20:20)
[2022-04-15] MEDS: Insulin GLARGINE 100 un/ml 10 ml VIAL SUBCUT SCH (21:16)
[2022-04-16] MEDS: ZOSYN 3.375 GM Q8H per EXTENDED INFUSION IV SCH ×3 (05:20→21:05)
[2022-04-16] MEDS: ANASTROZOLE 1 MG PO SCH (07:27)
[2022-04-16] MEDS: Cholecalciferol (VIT D3) 1,000 unit TAB PO SCH (07:28)
[2022-04-16] MEDS: Enoxaparin 40 MG/0.4 ML SYR SUBCUT SCH (07:28)
[2022-04-16] MEDS: Ciproflox/Dexameth OTIC.SUSP 7.5 ML BTL BOTH EARS SCH ×2 (07:29→21:05)
[2022-04-16] MEDS: CMCS: OMEGA-3 FATTY ACID 1000 mg(NF) PO SCH ×2 (07:29→21:06)
[2022-04-16] MEDS: NF: ICOSAPENT ETHYL 1 GM CAPSULE (NF) PO SCH ×2 (07:36→21:08)
[2022-04-16] MEDS: Tiotropium Brom/Olodaterol MDI INH SCH (08:10)
[2022-04-16 09:35] LABS: ABS Eosinophils 0.1 10^3/ul (0-0.6); ABS Lymphocytes 1.8 10^3/ul (1.0-4.8); ABS Monocytes 0.7 10^3/ul (0-0.8); ABS Neutrophils 3.1 10^3/ul (1.5-7.7); Eosinophil % 2.1 %; Hematocrit 34 % (35-47); Hemoglobin 11.2 g/dL (12.0-16.0); Lymphocyte % 30.9 %; Mean Corpuscular HGB Conc 33 g/dL (31-36); Mean Corpuscular Hemoglobin 27 pg (27-31); Mean Corpuscular Volume 83 fL (80-97); Platelet Count 254 10^3/uL (150-450); Red Cell Distribution Width 15 % (10-15); White Blood Count 5.7 10^3/uL (3.5-10.8)
[2022-04-16 10:19] LABS: C Reactive Protein 57.09 mg/L (<8.01); Calcium 9.9 mg/dL (8.6-10.3); Magnesium 2.1 mg/dL (1.9-2.7); Potassium 4.2 mmol/L (3.5-5.0)
[2022-04-16] MEDS: Mometasone 220 MCG MDI INH SCH (17:52)
[2022-04-16] MEDS: Insulin GLARGINE 100 un/ml 10 ml VIAL SUBCUT SCH (21:05)
[2022-04-17] MEDS: ZOSYN 3.375 GM Q8H per EXTENDED INFUSION IV SCH ×3 (04:45→21:37)
[2022-04-17 07:07] LABS: ABS Eosinophils 0.2 10^3/ul (0-0.6); ABS Lymphocytes 1.9 10^3/ul (1.0-4.8); ABS Monocytes 0.6 10^3/ul (0-0.8); ABS Neutrophils 1.7 10^3/ul (1.5-7.7); Eosinophil % 3.6 %; Hematocrit 34 % (35-47); Hemoglobin 11.3 g/dL (12.0-16.0); Lymphocyte % 44.3 %; Mean Corpuscular HGB Conc 34 g/dL (31-36); Mean Corpuscular Hemoglobin 28 pg (27-31); Mean Corpuscular Volume 83 fL (80-97); Mean Platelet Volume 8.5 fL (7.4-10.4); Nucleated Red Blood Cells % 0.2; Platelet Count 246 10^3/uL (150-450); Red Blood Count 4.06 10^6 /uL (3.70-4.87); Red Cell Distribution Width 15 % (10-15); White Blood Count 4.4 10^3/uL (3.5-10.8)
[2022-04-17 07:33] LABS: Calcium 9.8 mg/dL (8.6-10.3); Potassium 4.4 mmol/L (3.5-5.0); eGFR CKD-EPI 78.4 (>60)
[2022-04-17] MEDS: Tiotropium Brom/Olodaterol MDI INH SCH (08:27)
[2022-04-17] MEDS: Enoxaparin 40 MG/0.4 ML SYR SUBCUT SCH (09:40)
[2022-04-17] MEDS: Ciproflox/Dexameth OTIC.SUSP 7.5 ML BTL BOTH EARS SCH ×2 (09:40→21:35)
[2022-04-17] MEDS: CMCS: OMEGA-3 FATTY ACID 1000 mg(NF) PO SCH ×2 (09:41→21:37)
[2022-04-17] MEDS: Cholecalciferol (VIT D3) 1,000 unit TAB PO SCH (09:41)
[2022-04-17] MEDS: ANASTROZOLE 1 MG PO SCH (09:41)
[2022-04-17] MEDS: NF: ICOSAPENT ETHYL 1 GM CAPSULE (NF) PO SCH ×2 (10:11→21:56)
[2022-04-17] MEDS ORDERED: Influenza vaccine *QUAD* *2022-23* 0.5 ML SYRINGE IM ONE (16:00)
[2022-04-17] MEDS: Mometasone 220 MCG MDI INH SCH (19:11)
[2022-04-17] MEDS: Insulin GLARGINE 100 un/ml 10 ml VIAL SUBCUT SCH (21:38)
[2022-04-18] MEDS: ZOSYN 3.375 GM Q8H per EXTENDED INFUSION IV SCH ×2 (05:20→13:01)
[2022-04-18] MEDS: Tiotropium Brom/Olodaterol MDI INH SCH (07:40)
[2022-04-18] MEDS: Cholecalciferol (VIT D3) 1,000 unit TAB PO SCH (09:56)
[2022-04-18] MEDS: Enoxaparin 40 MG/0.4 ML SYR SUBCUT SCH (10:01)
[2022-04-18] MEDS: Ciproflox/Dexameth OTIC.SUSP 7.5 ML BTL BOTH EARS SCH (10:03)
[2022-04-18] MEDS: ANASTROZOLE 1 MG PO SCH (10:03)
[2022-04-18] MEDS: NF: ICOSAPENT ETHYL 1 GM CAPSULE (NF) PO SCH (10:04)
[2022-04-18] MEDS: CMCS: OMEGA-3 FATTY ACID 1000 mg(NF) PO SCH (10:04)
[2022-04-18 15:41] VITALS: BP 133/77
== END 2022-04-18 18:55 | disposition home or self-care (01) | DRG 155 ==
LOC: ED 22:45 → EDHOLD 22:45 → SUATTDRO 04-15 03:54 → EDHOLD 04-15 16:25 → MED 04-15 16:38
PROVIDERS: ADMIT Hospitalist; ATTEND Internal Medicine